=== PATIENT | female | born 1975 | race Caucasian/White ===

== ENCOUNTER → 2019-05-07 11:47 | Outpatient (CLI) | payer OTHER, SELFPAY ==
--- NOTE | ~2019-05-07 | US_ITS ---
EXAMINATION: US transvaginal EXAM DATE: 05/07/2019 12:10 INDICATION: Menorrhagia. TECHNIQUE: Pelvic transvaginal sonogram was performed. There are multiple grayscale and Doppler imag es available for interpretation. There is no prior study for comparison. FINDINGS: Uterus measures 6.8 x 5.2 x 4.7 cm, is retroverted and morphologically normal. Endometria l stripe measures 11 mm, within normal limits. There is no free pelvic fluid. Right adnexa: The right ovary is normal in size and morphology. Left adnexa: The left ovary is normal in size and morphology. IMPRESSION: 1. Unremarkable pelvic ultrasound exam. Reviewed, dictated and finalized at location A. STACKER
== END ==
PROVIDERS: PCP Family Medicine; Visit Provider Obstetrics & Gynecology
DX: N92.0 Excessive and frequent menstruation with regular cycle (principal)
CPT/HCPCS: 76830

== ENCOUNTER → 2019-06-27 15:15 | Outpatient (CLI) | payer OTHER, SELFPAY ==
--- NOTE | ~2019-06-27 | MM_ITS ---
EXAMINATION: MM scrn rocky implant BI w magda HISTORY: Screening mammogram TECHNIQUE: Craniocaudal and mediolateral oblique 3-D tomosynthesis images with implant displacement a nd synthetic 2-D images were generated. Craniocaudal and mediolateral oblique views of the breasts wi thout implant displacement were obtained using full field digital mammography. CAD analysis was submi tted and interpreted. COMPARISON: 05/18/2018 bilateral implant digital screening mammogram BREAST PARENCHYMAL COMPOSITION: The breasts are heterogeneously dense, which may obscure small masses . FINDINGS: Status post bilateral augmentation mammoplasty. There is no evidence of suspicious mass, ca lcification, or architectural distortion to suggest malignancy in either breast. There has been no nava spicious interval change. IMPRESSION: 1. No mammographic evidence of malignancy. 2. Recommend routine screening mammography in one year. BI-RADS Category 1: Negative Reviewed, dictated and finalized at location A.
== END ==
PROVIDERS: Visit Provider Obstetrics & Gynecology
DX: Z12.31 Encounter for screening mammogram for malignant neoplasm of breast (principal)
CPT/HCPCS: 77063; 77067

== ENCOUNTER 2019-10-18 09:44 | Outpatient (CLI) | payer OTHER, SELFPAY ==
--- NOTE | ~2019-10-18 | DEXA_ITS ---
Bone Density Report Name: Marianne Alexis Age: 43 Sex: Female Ethnicity: White Date of : 1975 Indication: postmenopausal; Referring Provider: YUNG GUERRA Study: Bone densitometry was performed. Exam Date: October 18, 2019 Accession number: [id number] Bone Density: Region BMD T-score Z-score Classification AP Spine (L1-L4) 1.042 0.0 0.2 Normal Femoral Neck (Left) 0.745 -0.9 -0.6 Normal Total Hip (Left) 0.948 0.0 0.3 Normal Total Hip Bilateral Avg 0.945 0.0 0.3 Normal Femoral Neck (Right) 0.706 -1.3 -1.0 Osteopenia Total Hip (Right) 0.940 0.0 0.2 Normal World Health Organization criteria for BMD impression classify patients as: Normal (T-score at or above -1.0), Osteopenia (T-score between -1.0 and -2.5), or Osteoporosis (T-score at or below -2.5). 10-year Fracture Risk(1): Major Osteoporotic Fracture 2.5% Hip Fracture 0.3% Reported Risk Factors: [place] (), Neck BMD=0.706, BMI=24.9, smoking (1) FRAX(R) Version 3.08. Fracture probability calculated for an untreated patient. Fracture probability may be lower if the patient has received treatment. Clinical Information Provided by Patient: Smokes Has used the following medications: Calcium Patient maximum height was 64 No regular weight bearing exercise Drinks caffeinated beverages Onset of menses at age 14 Number of children 2 Impression: The patient has low bone mass, based on the Right Femoral Neck T-score. The patient has an estimated ten-year risk of hip fracture of 0.3% and an estimated ten-year risk of major fracture of 2.5%, based on the WHO FRAX algorithm. The patient has risk factors, including: smoking. Discussion: BONE DENSITY IS LOW AT ONE OR MORE SKELETAL SITES. This patient's lowest T-score is low at one or more skeletal sites. It meets the World Health Organization's (WHO) criteria for ?low bone mass? (T-score between -1.0 and -2.5). The patient's 10-year risk of fracture as calculated by FRAX is less than the threshold where pharmacological therapy is recommended by the National Osteoporosis Foundation (NOF). However, all treatment decisions require clinical judgment and consideration of individual patient factors, including patient preferences, comorbidities, previous drug use, risk factors not captured in the FRAX model (e.g., frailty, falls, vitamin D deficiency, increased bone turnover, interval significant decline in bone density) and possible under or overestimation of fracture risk by FRAX. The patient should follow a healthful lifestyle (good nutrition with adequate calcium and vitamin D, and appropriate weight-bearing exercise). Follow-Up: Consider repeating this study in 2 to 3 years to reassess this patient's status, or sooner if there is some new clinical indication. Reported by: GOPI on
== END 2019-10-18 09:45 | disposition home or self-care (01) ==
PROVIDERS: PCP Family Medicine; Visit Provider Physician Assistant
DX: Z82.62 Family history of osteoporosis (principal); M85.851 Other specified disorders of bone density and structure, right thigh
CPT/HCPCS: 77080

== ENCOUNTER 2020-03-06 13:51 | Emergency (ER) | payer OTHER, SELFPAY ==
[2020-03-06 14:02] VITALS: BP 120/96; PULSE 107; RESP 16; TEMP 36.7; O2SAT 100
--- NOTE | 2020-03-06 14:07 | ED.SKABFB ---
HPI - Skin/Abscess/Foreign Bdy General Chief complaint: Skin/Abscess/Foreign Body Stated complaint: insect bite Time Seen by Provider: 03/06/20 14:00 Source: patient and RN notes reviewed Mode of arrival: ambulatory Limitations: no limitations History of Present Illness HPI narrative: Patient presents today complaining of a possible spider bite to the right lower leg x4 days. States she has been using peroxide and neosporin without relief. She has also attempted to pop the area and expressed a small amount of purulent material. Denies history of staph infections, abscesses, boils. Denies history of similar lesions. MD complaint: insect bite/sting Related Data Allergies Allergy/AdvReac Type Severity Reaction Status Date / Time No Known Allergies Allergy Unknown Verified 10/01/19 15:53 Review of Systems Review of Systems: Narrative: CONSTITUTIONAL: Denies body aches, fever, chills, or sweats. EYES: Denies visual changes, redness, or discharge. ENT: Denies rhinorrhea, congestion, sore throat, or otalgia. CARDIOVASCULAR: Denies chest pain, palpitations, or edema. RESPIRATORY: Denies cough or dyspnea. GASTROINTESTINAL: Denies abdominal pain, nausea, vomiting, or diarrhea. GENITOURINARY: Denies dysuria or hematuria. SKIN: Denies rash, itching. +possible spider bite to right lower leg MUSCULOSKELETAL: Denies back pain, joint pain, or myalgia. NEUROLOGIC: Denies headache, numbness, tingling, or weakness. PSYCH: Denies depression or anxiety. PMFSH Social History Social History Smoking packs per day: 0.75 Smoking cigarettes per day: 15.0 Years smoked: 20 Smoking pack-years: 15.00 Smoking status: Current every day smoker Tobacco type: cigarettes Alcohol intake: current Substance use: never Substance use type: does not use Gender identity (if verbalized by the patient): Female Comments At time of signature, I have reviewed and agree with nursing past medical, surgical, social and family history unless otherwise noted. Please see nursing chart for further information. There is no relevant family history pertinent to the presenting complaint Exam Narrative: Exam Narrative: GENERAL: Well-appearing, well-nourished, and in no acute distress. HEAD: Normocephalic, atraumatic. EYES: EOMI. No redness or drainage. Conjunctivae normal. ENT: Mucous membranes pink and moist. NECK: Normal AROM. CHEST: No respiratory distress. EXTREMITIES: Normal range of motion. No edema. SKIN: Warm, dry, no rash. Capillary refill normal. Normal skin turgor. 3.5x4cm area of erythema and mild induration to the medial right lower leg with pinpoint scab in the center. No fluctuance noted. Tender to palpation. No red streaking. No active drainage. No edema. Distal sensation intact. Capillary refill normal. NEURO: No focal deficits. Alert and oriented x3. Gait steady. PSYCH: Normal affect. No signs of depression or anxiety. Course Vital Signs Vital signs: Vital Signs Temperature 98.1 F 03/06/20 14:02 Pulse Rate 107 H 03/06/20 14:02 Respiratory Rate 16 03/06/20 14:02 Blood Pressure 120/96 H 03/06/20 14:02 Pulse Oximetry 100 03/06/20 14:02 Temperature 98.1 F 03/06/20 14:09 Pulse Rate 107 H 03/06/20 14:09 Respiratory Rate 16 03/06/20 14:09 Blood Pressure 120/96 H 03/06/20 14:09 Pulse Oximetry 100 03/06/20 14:09 Reviewed. Pt has been instructed to follow up with her PCP regarding her elevated blood pressure today. MDM - Skin/Abscess/Foreign Bdy Differential Diagnosis Differential diagnosis: Likely abscess of skin or subcutaneous tissue, cellulitis, insect bites and impetigo Critical Care Time Critical Care Time Critical Care Time: No Discharge Plan Discharge Clinical Impression: Cellulitis of leg, right Patient Disposition: Home, Self-Care Condition: Stable Instructions: Antibiotic Form, Cellulitis (DC) Gabino
[2020-03-06 14:09] VITALS: BP 120/96; PULSE 107; RESP 16; TEMP 36.7; O2SAT 100
== END 2020-03-06 14:10 | disposition home or self-care (01) ==
PROVIDERS: Emergency Provider Nurse Practitioner; PCP Family Medicine
DX: L03.115 Cellulitis of right lower limb (principal); F17.210 Nicotine dependence, cigarettes, uncomplicated
CPT/HCPCS: 99213; G0463

== ENCOUNTER 2020-04-09 08:54 | Day surgery (SDC) | payer OTHER, SELFPAY ==
[2020-04-09] VITALS (11 sets, daily range): BP systolic 93–142; BP diastolic 47–83; PULSE 62–97; RESP 15–20; TEMP 36.1–36.6; O2SAT 98–100
--- NOTE | ~2020-04-09 | XR_ITS ---
EXAMINATION: XR retrograde pyelo w/stent LT INDICATION: Left flank pain TECHNIQUE: Seven intraoperative fluoroscopic images are submitted for review. Total fluoroscopic time is 67.1 seconds. COMPARISON: CT from today FINDINGS: Fluoroscopic images demonstrate mild left hydronephrosis. Final images demonstrate a left i nternal ureteral stent in expected position. Please refer to procedure note for full details. IMPRESSION: 1. Mild left hydronephrosis with left internal ureteral stent placed in expected position. Please ref er to procedure note for full details. Reviewed, dictated and finalized at location A. R RETORT IMPRESSION: 1. Mild left hydronephrosis with left internal ureteral stent placed in expecte d position. Please refer to procedure note for full details.
--- NOTE | ~2020-04-09 | CT_ITS ---
EXAMINATION: CT abdomen pelvis wo con DATE: 04/09/2020 10:49 INDICATION: Left flank pain. Hematuria. TECHNIQUE: Computed tomography (CT) of the abdomen and pelvis was performed without intravenous contr ast. Automated exposure control and iterative reconstruction technique were employed. The dose-length product was 211.24 mGy-cm. COMPARISON: 07/15/2017 FINDINGS: Mild right basilar atelectasis. Small fat-containing posterior diaphragmatic hernia. Heart size is no rmal. No pericardial or pleural effusion. Bilateral breast implants. Liver, gallbladder, spleen, panc reas and bilateral adrenal glands are normal. Right kidney and ureter are normal with no urolithiasis or hydronephrosis. 9 x 5 x 4 mm obstructing stone at the left ureteropelvic junction with mild left hydronephrosis. There are 4 additional 1-2 mm stones in the left kidney. No stones along the more dis rasheed left ureter. Mild left perinephric stranding. Bladder is normal. Uterus and bilateral adnexa are unremarkable. Bowels including the appendix are normal. Tiny amount of likely physiologic free fluid in the cul-de-sac. No pathologically enlarged dominant or pelvic lymphadenopathy. Lower lumbar and lo wer thoracic spondylosis. IMPRESSION: 1. Left nephrolithiasis with obstructing 9 x 5 x 4 mm stone at the left ureterovesicular junction wit h mild left hydronephrosis. Reviewed, dictated and finalized at location A. OLIDS MANAGEMENT TECHNICIAN IMPRESSION: 1. Left nephrolithiasis with obstructing 9 x 5 x 4 mm stone at the left uretero vesicular junction with mild left hydronephrosis.
[2020-04-09] MEDS: SODIUM CHLORIDE 0.9% IV 1,000 ML 999 ML IV CONT (09:41)
[2020-04-09 09:55] LABS: Basophils Absolute Auto 0.1 K/mm3 (0.0-0.1); Basophils Percent Auto 0.5 % (0.2-1.2); Eosinophils Absolute Auto 0.2 K/mm3 (0-0.3); Eosinophils Percent Auto 1.9 % (0-4.4); Hematocrit 40.1 % (37.0-47.0); Hemoglobin 13.4 g/dL (12.0-15.0); Immature Granulocyte Absolute 0.05 K/mm3 (0.00-0.031); Immature Granulocyte Percent A 0.4 % (0-0.5); Lymphocytes Absolute Auto 1.72 K/mm3 (0.9-3.2); Mean Corpuscular HGB Conc 33.4 g/dl (32-36); Mean Corpuscular Volume 95.7 fl (80-100); Mean Platelet Volume 9.8 fl (7.4-10.4); Monocytes Absolute Auto 0.9 K/mm3 (0.1-0.6); Monocytes Percent Auto 7.1 % (2.6-8.5); Neutrophils Absolute Auto 9.4 K/mm3 (1.3-6.7); Neutrophils Percent Auto 76.1 % (45.5-73.1); Platelet Count Result 323 k/mm3 (150-375); Red Blood Count 4.19 M/mm3 (4.2-5.4); Red Cell Distribution Width 13.2 % (11.5-14.5); White Blood Count 12.3 K/mm3 (4.5-10.0)
[2020-04-09] MEDS: FAMOTIDINE 20 MG/2 ML VIAL IV PUSH (10:04)
[2020-04-09] MEDS: ONDANSETRON INJ 4 MG/2 ML VIAL IV PUSH ×2 (10:04→16:04)
[2020-04-09 10:09] LABS: Alanine Aminotransferase 14 U/L (4-35); Albumin Level 3.7 g/dL (3.5-5.1); Alkaline Phosphatase 68 U/L (38-126); Anion Gap 2 mmol/L (8-16); Aspartate Amino Transferase 19 U/L (14-36); Bilirubin,Total 0.7 mg/dL (0.2-1.3); Blood Urea Nitrogen 14 mg/dL (7-17); Calcium 8.6 mg/dL (8.4-10.2); Carbon Dioxide 26 mmol/L (22-30); Chloride 108 mmol/L (98-107); Estimated CRCL calculation 58 ml/min; Estimated Glomerular Filt Rate 54; Glucose 99 mg/dL (65-105); Lipase 18 U/L (23-300); Sodium 136 mmol/L (137-145)
[2020-04-09 10:39] LABS: Add Urine Microscopic? YES; Appearance Urine Clear (Clear); Bacteria Urine Trace /hpf; Bilirubin Urine Negative (Negative); Blood Urine Negative (Negative); Color Urine Yellow (Yellow); Glucose Urine UA Negative (Negative); Ketones Urine Negative (Negative); Leukocyte Esterase Ur Negative LEU/UL (Negative); Mucus Urine Rare /lpf; Nitrate Urine Negative (Negative); Protein Urine 1+ mg/dL (Negative); Squamous Epithelial Cell Urine Many /hpf (Few); Urobilinogen Urine Negative mg/dL (<2.0); WBC Urine 0-3 /hpf
--- NOTE | 2020-04-09 11:17 | ED.ABDPAIN ---
HPI - Abdominal Pain General Chief Complaint: Urogenital-Female Stated Complaint: Kidney Stones Time Seen by Provider: 04/09/20 09:07 Source: patient Mode of arrival: ambulatory Limitations: no limitations History of Present Illness HPI narrative: Patient is a 44-year-old female who presents with left flank pain patient notes over the last 2 days the pain has intensified with nausea decreased appetite patient notes history of urolithiasis was seen by primary care and has been taking Flomax and hydrocodone with minimal to no improvement presents today noting increasing pain. Related Data Allergies Allergy/AdvReac Type Severity Reaction Status Date / Time No Known Allergies Allergy Unknown Verified 04/09/20 09:45 Review of Systems Review of Systems: All systems reviewed & are unremarkable except as noted in HPI and below PMFSH Past Medical History Medical History (Updated 04/09/20 @ 11:20 by Yuri Jones PA-C) Nephrolithiasis Urolithiasis Social History Social History Social History: Smoking packs per day: 0.75 Smoking cigarettes per day: 15.0 Years smoked: 20 Smoking pack-years: 15.00 Smoking status: Current every day smoker Tobacco type: cigarettes Second hand tobacco smoke exposure: Yes Alcohol intake: current Drinks per week: 2 Substance use: never Substance use type: does not use Gender identity (if verbalized by the patient): Female Exam Narrative: Exam Narrative: GENERAL: Well-appearing, well-nourished, and in no acute distress. HEAD: Normocephalic, atraumatic. EYES: PERRLA and EOMI. ENT: Nares clear, no rhinorrhea or epistaxis. Mucous membranes moist. CHEST: Clear to auscultation. No respiratory distress. No wheezes rales or rhonchi HEART: Regular rate and rhythm. No murmur heard. Normal peripheral pulses. ABDOMEN: Soft, nontender, nondistended EXTREMITIES: Normal range of motion. No edema. SKIN: Warm, dry, no rash. NEURO: No focal deficits. Alert and oriented x3. Cranial nerves II through XII grossly intact PSYCH: Normal mood and affect. Course Course Emergency Course: Patient with urolithiasis in the room has been hydrated given pain medication afebrile nontoxic-appearing without emesis Consultations Consultation #1: Case discussed with urology Dr. Pratt's who will take the patient to the operating room for stone extraction Date: 04/09/20 Time: 11:42 Vital Signs Vital signs: Vital Signs Temperature 97.0 F L 04/09/20 09:16 Pulse Rate 92 04/09/20 09:16 Respiratory Rate 18 04/09/20 09:16 Blood Pressure 142/83 H 04/09/20 09:16 Pulse Oximetry 98 04/09/20 09:16 Temperature 97.0 F L 04/09/20 09:16 Pulse Rate 73 04/09/20 11:15 Respiratory Rate 18 04/09/20 11:15 Blood Pressure 108/72 04/09/20 11:15 Pulse Oximetry 98 04/09/20 11:15 MDM - Abdominal Pain MDM Narrative Medical decision making narrative: Patient was found to have urolithiasis will go to the operating room for stone extraction by urology patient aware of recommendations and discussion with urology has been hydrated and given pain medications in the emergency department hemodynamically stable resting comfortably in the room Lab Data Result diagrams: 04/09/20 09:40 04/09/20 09:40 Labs: Lab Results 04/09/20 04/09/20 04/09/20 Range/Units 09:40 09:40 10:24 WBC 12.3 H (4.5-10.0) K/mm3 RBC 4.19 L (4.2-5.4) M/mm3 Hgb 13.4 (12.0-15.0) g/dL Hct 40.1 (37.0-47.0) % MCV 95.7 (80-100) fl MCH 32.0 (26-34) pg MCHC 33.4 (32-36) g/dl RDW 13.2 (11.5-14.5) % Plt Count 323 (150-375) k/mm3 MPV 9.8 (7.4-10.4) fl Immature Gran % (Auto) 0.4 (0-0.5) % Neut % (Auto) 76.1 H (45.5-73.1) % Lymph % (Auto) 14.0 L (18.3-44.2) % [place] % (Auto) 7.1 (2.6-8.5) % Eos % (Auto) 1.9 (0-4.4) % Baso % (Auto) 0.5 (0.2-1.2) % Lymp
[2020-04-09] MEDS: MORPHINE SULFATE (*CRX) 4 MG/ML INJ IV PUSH (12:01)
--- NOTE | 2020-04-09 12:45 | P.HP_ITS ---
History of Present Illness History of Present Illness Consent: Risks, benefits, and alternatives have been discussed and questions answered. Patient agrees to proceed with procedure. Chief complaint: Kidney Stones Narrative: Marianne Alexis is a 44 year old female who spontaneously passed 2 or 3 small stones in the past. She now presents to the ER with a 3-4 day history of intermittent left flank pain associated with nausea vomiting. She denies fevers chills or gross hematuria. Imaging in the ER reveals a 9 mm obstructing left proximal ureteral calculus. Additionally she has some tiny left renal calculi that, the current size, not clinically significant. Review of Systems Cardiovascular: Cardiovascular: Denies chest pain, Denies lightheadedness, Denies palpitations and Denies dyspnea Respiratory: Respiratory: Denies dyspnea Gastrointestinal: Gastrointestinal: Denies diarrhea, Denies nausea and Denies vomiting Genitourinary: Genitourinary: Denies hematuria and Denies dysuria Endocrine: Endocrine: Denies palpitations PMFSH Past Medical History Medical History Nephrolithiasis Urolithiasis Social History Social History Social History: Smoking packs per day: 0.75 Smoking cigarettes per day: 15.0 Years smoked: 20 Smoking pack-years: 15.00 Smoking status: Current every day smoker Tobacco type: cigarettes Second hand tobacco smoke exposure: Yes Alcohol intake: current Drinks per week: 2 Substance use: never Substance use type: does not use Gender identity (if verbalized by the patient): Female Meds Home Medications and Allergies Home Medications Medication Instructions Recorded Confirmed Type hydrocodone 5 mg-acetaminophen 325 1 tablet PO Q4H PRN #20 tablet 04/08/20 04/08/20 Rx mg tablet tamsulosin 0.4 mg capsule 0.4 mg PO DAILY #30 cap 04/08/20 04/08/20 Rx Allergies Allergy/AdvReac Type Severity Reaction Status Date / Time No Known Allergies Allergy Unknown Verified 04/09/20 09:45 Vital Signs Vital Signs - 24 hr 04/09/20 09:16 04/09/20 11:15 04/09/20 11:55 Temperature 97.0 F L Pulse Rate 92 73 62 Respiratory Rate 18 18 18 Blood Pressure 142/83 H 108/72 103/71 Pulse Oximetry 98 98 98 Exam Const: General: no acute distress Resp: Effort & Inspection: normal respiratory effort GI: Inspection: non-distended GI Palp: No abdominal tenderness and No Guarding due to palpation present (GI) Auscultation: normal bowel sounds Assessment and Plan Assessment and plan (1) Urolithiasis: Code(s): N20.9 - Urinary calculus, unspecified Status: Acute Assessment and Plan: * Cystoscopy left ureteroscopy with laser lithotripsy, stone extraction and possible stent placement. Patient is aware of the potential risk including, failure to completely extract stone, ureteral injury, ureteral edema, possible stent placement. She is aware of alternative treatment options including ESWL.
--- NOTE | 2020-04-09 12:49 | WPDHPUPDATE1 ---
History and Physical Update Update Date/Time: 04/09/20 12:49 History and Physical has been reviewed, including an updated exam of the patient. There are NO changes in the patient's condition. Risks, benefits, and alternatives have been discussed and questions answered. Patient agrees to proceed with procedure.
--- NOTE | 2020-04-09 13:51 | WPDANESEPPF ---
Anes - Initial Pre Proc Eval Procedure: Operation Date: 04/09/20 14:15 Proposed Procedures p CYSTOSCOPY,LEFT URETEROCOPY,LEFT RETROGRADE PYELOGRAM,LEFT STONE EXTRACTION,POSSIBLE HOLMIUM LASER,POSSIBLE STENT PLCEMENT - Med Amos MD Date/Time: 04/09/20 13:51 Surgeon: Med Amos MD Pre Op Diagnosis: Kidney Stones Patient Data Age: 44 Gender: F Height: 1.63 m Weight: 72.5 kg Last Vital Signs Temp 36.6 C 04/09/20 13:32 Pulse 74 04/09/20 13:32 Resp 18 04/09/20 13:32 BP 113/55 L 04/09/20 13:32 Pulse Ox 99 04/09/20 13:32 Allergies Allergy/AdvReac Type Severity Reaction Status Date / Time No Known Allergies Allergy Unknown Verified 04/09/20 13:21 Home Medications Medication Instructions Recorded Confirmed Type hydrocodone 5 mg-acetaminophen 325 1 tablet PO Q4H PRN #20 tablet 04/08/20 04/09/20 Rx mg tablet tamsulosin 0.4 mg capsule 0.4 mg PO DAILY #30 cap 04/08/20 04/09/20 Rx Laboratory Tests 04/09/20 04/09/20 04/09/20 09:40 09:40 10:24 WBC 12.3 K/mm3 H K/mm3 (4.5-10.0) RBC 4.19 M/mm3 L M/mm3 (4.2-5.4) Hgb 13.4 g/dL g/dL (12.0-15.0) Hct 40.1 % % (37.0-47.0) MCV 95.7 fl fl (80-100) MCH 32.0 pg pg (26-34) MCHC 33.4 g/dl g/dl (32-36) RDW 13.2 % % (11.5-14.5) Plt Count 323 k/mm3 k/mm3 (150-375) MPV 9.8 fl fl (7.4-10.4) Immature Gran % (Auto) 0.4 % % (0-0.5) Neut % (Auto) 76.1 % H % (45.5-73.1) Lymph % (Auto) 14.0 % L % (18.3-44.2) [place] % (Auto) 7.1 % % (2.6-8.5) Eos % (Auto) 1.9 % % (0-4.4) Baso % (Auto) 0.5 % % (0.2-1.2) Lymph # (Auto) 1.72 K/mm3 K/mm3 (0.9-3.2) [place] # (Auto) 0.9 K/mm3 H K/mm3 (0.1-0.6) Eos # (Auto) 0.2 K/mm3 K/mm3 (0-0.3) Baso # (Auto) 0.1 K/mm3 K/mm3 (0.0-0.1) Abs Immat Gran (auto) 0.05 K/mm3 H K/mm3 (0.00-0.031) Absolute Neuts (auto) 9.4 K/mm3 H K/mm3 (1.3-6.7) Absolute Nucleated RBC 0.0 K/mm3 K/mm3 (0.0-0.012) Nucleated RBC % 0.0 % % (0.0-0.2) Sodium 136 mmol/L L mmol/L (137-145) Potassium 4.0 mmol/L mmol/L (3.4-5.0) Chloride 108 mmol/L H mmol/L (98-107) Carbon Dioxide 26 mmol/L mmol/L (22-30) Anion Gap 2 mmol/L L mmol/L (8-16) BUN 14 mg/dL mg/dL (7-17) Creatinine 1.10 mg/dL H mg/dL (0.7-1.0) Estim Creat Clear Calc 58 ml/min ml/min Estimated GFR 54 L (59 - ) Glucose 99 mg/dL mg/dL (65-105) Calcium 8.6 mg/dL mg/dL (8.4-10.2) Total Bilirubin 0.7 mg/dL mg/dL (0.2-1.3) AST 19 U/L U/L (14-36) ALT 14 U/L U/L (4-35) Alkaline Phosphatase 68 U/L U/L (38-126) Total Protein 7.0 g/dL g/dL (6.3-8.2) Albumin 3.7 g/dL g/dL (3.5-5.1) Lipase 18 U/L L U/L (23-300) Urine Color Yellow (Yellow) Urine Appearance Clear (Clear) Urine pH 6.0 (5.0-9.0) Ur Specific [place] 1.030 (1.001-1.035) Urine Protein 1+ mg/dL H mg/dL (Negative) Urine Glucose (UA) Negative mg/dL mg/dL (Negative) Urine Ketones Negative mg/dL mg/dL (Negative) Ur Blood (Man) Negative (Negative) Urine Nitrate Negative (Negative) Urine Bilirubin Negative (Negative) Urine Urobilinogen Negative mg/dL mg/dL (<2.0) Leukocyte Esterase Rfl Negative LEON/UL LEON/UL (Negative) Urine RBC 3-5 /hpf H /hpf (0-2) Urine WBC 0-3 /hpf /hpf Ur Squamous Epith Cells Many /hpf H /hpf (Few) Urine Bacteria Trace /hpf /hpf Urine Mucus Rare /lpf /lpf Patient hx anesthesia problems: none Family hx anesthesia problems: none PMFSH Past
[2020-04-09] MEDS: LACTATED RINGERS 1,000 ML 30 ML IV CONT ×2 (14:08→15:33)
[2020-04-09] MEDS: fentaNYL CITRATE INJ (*CRX) 100 MCG/2 ML VIAL 50 MCG IV PUSH (14:08)
[2020-04-09] MEDS: ceFAZolin SODIUM 1 GM VIAL 2 GM IV PUSH (14:54)
[2020-04-09] MEDS: KETOROLAC 30 MG/ML VIAL (*BKC) IV PUSH (15:26)
--- NOTE | 2020-04-09 15:35 | PM.PROC ---
Procedure Note - Detailed Date of procedure: 04/09/20 Pre-op diagnosis: Kidney Stones Post-op diagnosis: same Procedure performed: 1. Cystoscopy, left retrograde pyelogram 2. Left ureteroscopy with laser lithotripsy, stone extraction. 3. Left ureteral stent placement Description of procedure: Patient is brought to the operative suite where she was prepped and draped in routine sterile fashion while in dorsal lithotomy position after the uneventful induction of a general anesthetic. Cystoscopy is undertaken with a 19 F rigid cystoscope. Her bladder is normal, without mucosal hyperemia harm intravesical foreign body/ neoplasm. She has a single orthotopic ureteral orifice bilaterally. A 0.035 in glidewire was advanced in the left renal pelvis. Distal ureter was dilated with an 8 F 10 F dilator and a 12/14 F ureteral access sheath was placed. Ureteroscopy was undertaken with a 7.5 F flexible ureteral scope. Using a 273 micron holmium laser fiber her 9 mm proximal ureteral stone is fractured into multiple tiny pieces. All the sizable fragments were extracted with a 1.9 F and 0 tip disposable stone basket. Retrograde pyelogram is used to ensure appropriate positioning of a 4.8 F variable length ureteral stent. Scopes wires removed she was taken recovery room good condition Anesthesia: GLMA Surgeon: Med Amos MD Case Manager: None Drains: Yes (4.8F left ureteral stent) Packing: No Pathology: yes (Left ureteral stone) Complications: No immediate complications Condition: stable Disposition: PACU
== END 2020-04-09 16:45 | disposition home or self-care (01) ==
LOC: ANHED 11:43 → ANHSURGERY 11:47
PROVIDERS: Emergency Medicine Emergency Medical Services; Emergency Provider Emergency Medicine; PCP Family Medicine; Visit Provider Urology
PROC: (CPT 52352; principal; 2020-04-09 14:15)
DX: N13.2 Hydronephrosis with renal and ureteral calculous obstruction (principal); F17.210 Nicotine dependence, cigarettes, uncomplicated
CPT/HCPCS: 52356; 36415; 74176; 74420; 80053; 81001; 81025; 82365; 83690; 85025; 88300; 96361; 96365; 96375; 99285; C1769; C1894; C2617; J0131; J0690; J1100; J1885; J2250; J2270; J2405; J2704; J3010; J7030; J7120; Q9966

== ENCOUNTER 2021-01-28 11:04 | Emergency (ER) | payer OTHER, SELFPAY ==
--- NOTE | ~2021-01-28 | CT_ITS ---
EXAMINATION: CT BRAIN W/O DATE: 01/28/2021 13:46 INDICATION: Migraine headache TECHNIQUE: Computed tomography (CT) of the head was performed without intravenous contrast. The dose- length product was 605.33 mGy-cm. Automated exposure control and iterative reconstruction technique w ere employed. COMPARISON: No prior studies for comparison. FINDINGS: Normal brain parenchymal volume for age. Normal lópez-white differentiation. No acute intrac ranial hemorrhage, infarction, mass or mass effect. No ventriculomegaly or midline shift. Midline sagittal images demonstrate a normal corpus callosum, c raniovertebral junction and sella turcica. Basilar cisterns are patent. There is mild mucosal thickening of the ethmoid and frontal sinuses. IMPRESSION: 1. No acute intracranial abnormality. 2: Mild sinusitis. Reviewed, dictated and finalized at location A. RATUS OPERATOR
[2021-01-28 11:22] VITALS: BP 113/67; PULSE 83; RESP 18; TEMP 36.2; O2SAT 98
[2021-01-28 12:39] LABS: Basophils Absolute Auto 0.1 K/mm3 (0.0-0.1); Basophils Percent Auto 0.6 % (0.2-1.2); Eosinophils Absolute Auto 0.3 K/mm3 (0-0.3); Eosinophils Percent Auto 2.8 % (0-4.4); Hematocrit 47.9 % (37.0-47.0); Immature Granulocyte Absolute 0.05 K/mm3 (0.00-0.031); Immature Granulocyte Percent A 0.5 % (0-0.5); Lymphocytes Absolute Auto 3.49 K/mm3 (0.9-3.2); Lymphocytes Percent Auto 32.7 % (18.3-44.2); Mean Corpuscular HGB Conc 33.4 g/dl (32-36); Mean Corpuscular Hemoglobin 31.9 pg (26-34); Mean Corpuscular Volume 95.4 fl (80-100); Mean Platelet Volume 9.6 fl (7.4-10.4); Monocytes Absolute Auto 0.9 K/mm3 (0.1-0.6); Monocytes Percent Auto 8.2 % (2.6-8.5); Neutrophils Absolute Auto 5.9 K/mm3 (1.3-6.7); Neutrophils Percent Auto 55.2 % (45.5-73.1); Platelet Count Result 423 k/mm3 (150-375); Red Blood Count 5.02 M/mm3 (4.2-5.4); Red Cell Distribution Width 13.2 % (11.5-14.5); White Blood Count 10.7 K/mm3 (4.5-10.0)
[2021-01-28 12:53] LABS: Alanine Aminotransferase 19 U/L (4-35); Albumin Level 4.5 g/dL (3.5-5.1); Alkaline Phosphatase 72 U/L (38-126); Anion Gap 7 mmol/L (8-16); Aspartate Amino Transferase 18 U/L (14-36); Bilirubin,Total 0.5 mg/dL (0.2-1.3); Blood Urea Nitrogen 13 mg/dL (7-17); Calcium 9.5 mg/dL (8.4-10.2); Carbon Dioxide 26 mmol/L (22-30); Chloride 106 mmol/L (98-107); Estimated CRCL calculation 77 ml/min; Estimated Glomerular Filt Rate > 60; Glucose 94 mg/dL (65-110); Potassium 4.2 mmol/L (3.4-5.0); Sodium 139 mmol/L (137-145)
[2021-01-28 12:59] LABS: Add Urine Microscopic? YES; Appearance Urine Clear (Clear); Bacteria Urine Trace /hpf; Bilirubin Urine Negative (Negative); Blood Urine 2+ (Negative); Color Urine Yellow (Yellow); Glucose Urine UA Negative (Negative); Ketones Urine Negative (Negative); Leukocyte Esterase Ur Negative LEU/UL (Negative); Mucus Urine Rare /lpf; Nitrate Urine Negative (Negative); Protein Urine Negative (Negative); RBC Urine 0-2 /hpf (0-2); Specific Grav Ur 1.012 (1.001-1.035); Squamous Epithelial Cell Urine Rare /hpf (Few); Urobilinogen Urine Negative mg/dL (<2.0); WBC Urine 0-3 /hpf
[2021-01-28] MEDS: DEXAMETHASONE SOD PHOS INJ 4 MG/ML VIAL 10 MG IV PUSH (13:54)
[2021-01-28] MEDS: diphenhydrAMINE HCl INJ 50 MG/ML VIAL IV PUSH (13:56)
[2021-01-28] MEDS: KETOROLAC 15 MG/ML VIAL (*BKC) 30 MG IV PUSH (13:58)
[2021-01-28] MEDS: METOCLOPRAMIDE HCL INJ 10 MG/2 ML VIAL IV PUSH (14:00)
--- NOTE | 2021-01-28 16:30 | ED.GENADULT ---
HPI - General Adult General Chief complaint: Headache Stated complaint: migraine Time Seen by Provider: 01/28/21 11:48 Source: patient Mode of arrival: ambulatory Limitations: no limitations History of Present Illness HPI narrative: Patient is a 45-year-old female presenting with chief complaint of frontal left-sided headache over the past 4 days. Patient reports that she contacted her primary care and was prescribed Imitrex but her symptoms did not remit after taking the 2 doses so she presented to the emergency department. Patient reports some nausea and photophobia. She denies any vomiting. Patient reports that she has a history of migraines however they do not generally last for 4 days and are not usually as intense. She reports that she can usually get them to stop with rest and [id number] medication. She denies any fever, chills, head trauma, neurologic deficits, speech difficulties. Patient denies chance of . Related Data Allergies Allergy/AdvReac Type Severity Reaction Status Date / Time No Known Allergies Allergy Unknown Verified 01/22/21 08:50 Review of Systems Review of Systems: CONSTITUTIONAL: Denies fever, chills, or sweats. EYES: Reports photophobia denies visual changes, redness, or discharge. ENT: Denies rhinorrhea, congestion, sore throat, or otalgia. CARDIOVASCULAR: Denies chest pain, palpitations, or edema. RESPIRATORY: Denies cough or dyspnea. GASTROINTESTINAL: Reports nausea denies abdominal pain,vomiting, or diarrhea. GENITOURINARY: Denies dysuria or hematuria. SKIN: Denies rash or itching. MUSCULOSKELETAL: Denies back pain, joint pain, or myalgia. NEUROLOGIC: Reports headache, denies numbness, dizziness, or weakness. PSYCHIATRIC: Denies anxiety or depression. [facility] Past Medical History Medical History Nephrolithiasis Overweight (BMI 25.0-29.9) Urolithiasis Social History Social History Social History: Smoking packs per day: 0.75 Smoking cigarettes per day: 15.0 Years smoked: 20 Smoking pack-years: 15.00 Tobacco type: cigarettes Second hand tobacco smoke exposure: Yes Alcohol intake: current Drinks per week: 2 Alcohol use details: social drinker Substance use: never Substance use type: does not use Gender identity (if verbalized by the patient): Female Sexual Orientation (if Verbalized by the Patient): Straight or Heterosexual Exam Narrative: GENERAL: Well-appearing, well-nourished, and in no acute distress. HEAD: Normocephalic, atraumatic. EYES: PERRLA and EOMI. ENT: Nares clear, no rhinorrhea or epistaxis. Mucous membranes moist. Oropharynx without tonsillar hypertrophy exudate or other lesions. Bilateral TMs pearly lópez nonbulging. Sinus tenderness maxillary. No purulent drainage. NECK: Supple. No adenopathy or masses. No rigidity. CHEST: Clear to auscultation. No respiratory distress. No wheezes rales or rhonchi HEART: Regular rate and rhythm. No murmur heard. Normal peripheral pulses. EXTREMITIES: Normal range of motion. No edema. SKIN: Warm, dry, no rash. NEURO: No focal deficits. Alert and oriented x3. PSYCH: Normal mood and affect. Course Vital Signs Vital signs: Vital Signs Temperature 97.1 F L 01/28/21 11:22 Pulse Rate 83 01/28/21 11:22 Respiratory Rate 18 01/28/21 11:22 Blood Pressure 113/67 01/28/21 11:22 Pulse Oximetry 98 01/28/21 11:22 Temperature 97.1 F L 01/28/21 11:22 Pulse Rate 83 01/28/21 11:22 Respiratory Rate 18 01/28/21 11:22 Blood Pressure 113/67 01/28/21 11:22 Pulse Oximetry 98 01/28/21 11:22 Medical Decision Making [facility] Narrative Medical decision making narrative: Patient reports remittance of symptoms with migraine cocktail. Patient does report getting over her virus a couple weeks ago still having some sinus tenderness. Patient will be placed on Augmenti
[2021-01-28 16:57] VITALS: BP 114/82; PULSE 86; RESP 17; O2SAT 99
== END 2021-01-28 16:58 | disposition home or self-care (01) ==
PROVIDERS: Physician Assistant; Emergency Provider Emergency Medicine; PCP Family Medicine
DX: R51.9 Headache, unspecified (principal); J01.90 Acute sinusitis, unspecified; F17.210 Nicotine dependence, cigarettes, uncomplicated
CPT/HCPCS: 36415; 70450; 80053; 81001; 81025; 85025; 96374; 96375; 99284; J1100; J1200; J1885; J2765

== ENCOUNTER → 2021-04-13 14:37 | Outpatient (CLI) | payer OTHER, SELFPAY ==
--- NOTE | ~2021-04-13 | XR_ITS ---
EXAMINATION: XR hand RT min 3V EXAM DATE: 04/13/2021 15:11 INDICATION: M79.641 - Pain in right hand. Swelling/bruising at head of 3rd metacarpal; occasional nu mbness, tingling and throbbing when using hand. TECHNIQUE: Right hand frontal, lateral and oblique projections obtained and reviewed. There is no pr ior study for comparison. FINDINGS: Right metacarpal bones are unremarkable. There are no bony erosions identified. There are no acute fractures or dislocations identified. There is no subcutaneous gas. The soft tissue is un remarkable. There are no radiopaque foreign bodies. IMPRESSION: 1. Unremarkable XR hand RT min 3V exam. Reviewed, dictated and finalized at location A. T PICKER
== END ==
PROVIDERS: PCP Family Medicine; Visit Provider Physician Assistant
DX: M79.641 Pain in right hand (principal)
CPT/HCPCS: 73130

== ENCOUNTER 2021-06-18 13:27 | Emergency (ER) | payer OTHER, SELFPAY ==
--- NOTE | ~2021-06-18 | CT_ITS ---
EXAMINATION: CT abdomen pelvis wo con DATE: 06/18/2021 17:14 INDICATION: Left flank pain. TECHNIQUE: Computed tomography (CT) of the abdomen and pelvis was performed without intravenous contr ast. Automated exposure control and iterative reconstruction technique were employed. The dose-length product was 202.32 mGy-cm. COMPARISON: CT abdomen and pelvis 04/09/2020 FINDINGS: The visualized portions of the lung bases demonstrate minimal atelectasis. No pleural effus ion. The heart size is normal. No pericardial effusion. Breast implants are noted. The liver, gallbla dder, spleen, pancreas, adrenal glands, and kidneys are normal. There is no urolithiasis. There are n o dilated loops of bowel. The appendix is normal. There are no pathologically enlarged lymph nodes. T here is no free intraperitoneal fluid. There is mild thoracolumbar spondylosis. IMPRESSION: 1. No urolithiasis. Reviewed, dictated and finalized at location A. IMPRESSION: 1. No urolithiasis.
[2021-06-18 13:28] VITALS: BP 121/102; PULSE 118; RESP 18; TEMP 36.4; O2SAT 98
[2021-06-18 13:48] LABS: Basophils Absolute Auto 0.1 K/mm3 (0.0-0.1); Basophils Percent Auto 0.6 % (0.2-1.2); Eosinophils Absolute Auto 0.4 K/mm3 (0-0.3); Eosinophils Percent Auto 3.3 % (0-4.4); Hematocrit 44.6 % (37.0-47.0); Hemoglobin 14.5 g/dL (12.0-15.0); Immature Granulocyte Absolute 0.03 K/mm3 (0.00-0.031); Immature Granulocyte Percent A 0.3 % (0-0.5); Lymphocytes Absolute Auto 2.77 K/mm3 (0.9-3.2); Lymphocytes Percent Auto 25.1 % (18.3-44.2); Mean Corpuscular HGB Conc 32.5 g/dl (32-36); Mean Corpuscular Hemoglobin 31.8 pg (26-34); Mean Corpuscular Volume 97.8 fl (80-100); Mean Platelet Volume 9.7 fl (7.4-10.4); Monocytes Percent Auto 8.7 % (2.6-8.5); Neutrophils Absolute Auto 6.9 K/mm3 (1.3-6.7); Platelet Count Result 415 k/mm3 (150-375); Red Blood Count 4.56 M/mm3 (4.2-5.4); Red Cell Distribution Width 13.4 % (11.5-14.5); White Blood Count 11.1 K/mm3 (4.5-10.0)
[2021-06-18 14:01] LABS: Alanine Aminotransferase 15 U/L (4-35); Albumin Level 4.4 g/dL (3.5-5.1); Alkaline Phosphatase 69 U/L (38-126); Anion Gap 7 mmol/L (8-16); Aspartate Amino Transferase 23 U/L (14-36); Bilirubin,Total 0.4 mg/dL (0.2-1.3); Blood Urea Nitrogen 13 mg/dL (7-17); Calcium 9.1 mg/dL (8.4-10.2); Carbon Dioxide 23 mmol/L (22-30); Chloride 109 mmol/L (98-107); Estimated CRCL calculation 74 ml/min; Estimated Glomerular Filt Rate > 60; Glucose 105 mg/dL (65-110); Sodium 139 mmol/L (137-145)
[2021-06-18 14:01] LABS: Add Urine Microscopic? YES; Appearance Urine Clear (Clear); Bilirubin Urine Negative (Negative); Blood Urine 1+ (Negative); Color Urine Yellow (Yellow); Glucose Urine UA Negative (Negative); Ketones Urine Negative (Negative); Leukocyte Esterase Ur Negative LEU/UL (Negative); Mucus Urine Rare /lpf; Nitrate Urine Negative (Negative); Protein Urine Negative (Negative); Squamous Epithelial Cell Urine Rare /hpf (Few); Urobilinogen Urine Negative mg/dL (<2.0); WBC Urine 0-3 /hpf
[2021-06-18 16:18] VITALS: BP 123/77; PULSE 78; RESP 19; O2SAT 97
--- NOTE | 2021-06-18 17:57 | ED.GENADULT ---
HPI - General Adult General Chief complaint: Back Pain/Injury Stated complaint: I've got kidney stones again Left flank pain Time Seen by Provider: 06/18/21 16:17 Source: RN notes reviewed History of Present Illness HPI narrative: Patient presents emergency room from home for left flank pain. Patient states has been ongoing for the past 6 days. The pain is located left back does not radiate described as aching in nature worse with rotation of the torso and bending over denies any fevers or chills, chest pain, shortness of breath nausea vomiting diarrhea or any other symptoms. Patient states he has a history of of kidney stones and was concerned she had another kidney stone states she is not taking medication at home for the pain and does not wish to have any pain medication at this time Related Data Allergies Allergy/AdvReac Type Severity Reaction Status Date / Time No Known Allergies Allergy Unknown Verified 06/04/21 13:52 Review of Systems Review of Systems: Gen.: Denies fevers or chills ENT: Denies congestion Respiratory: Denies shortness of breath or cough CV: Denies chest pain or palpitations GI: Denies abdominal pain nausea, emesis or diarrhea denies burning, urgency, frequency or hematuria Musculoskeletal: See HPI Neuro: Denies numbness, tingling, weakness or focal weakness Skin: Denies rash Except as documented, all other systems reviewed and negative [facility] Past Medical History Medical History Nephrolithiasis Overweight (BMI 25.0-29.9) Urolithiasis Social History Social History Social History: Smoking packs per day: 0.75 Smoking cigarettes per day: 15.0 Years smoked: 20 Smoking pack-years: 15.00 Smoking status: Current every day smoker Tobacco type: cigarettes Second hand tobacco smoke exposure: Yes Alcohol intake: current Drinks per week: 2 Alcohol use details: social drinker Substance use: never Substance use type: does not use Gender identity (if verbalized by the patient): Female Sexual Orientation (if Verbalized by the Patient): Straight or Heterosexual Exam Narrative: APPEARANCE: No acute distress, nontoxic, resting in bed EYES: EOMI HEENT: Normocephalic, atraumatic, OMM RESPIRATORY: No respiratory distress Clear to auscultation bilaterally with no rhonchi wheezing or rales. CARDIOVASCULAR: Regular rate and rhythm without murmurs rubs or gallops. ABDOMINAL: Soft, nontender, nondistended, no rebound or guarding MUSCULOSKELETAl: Moves all extremities. No clubbing, cyanosis or edema. Back: No midline thoracic lumbar tenderness palpation tender palpation over left paravertebral cells L1-3 and left flank pain increased with forward flexion rotation of the torso no overlying rash NEURO: Awake and alert. Following commands, speech normal, no focal deficits SKIN:: Warm, dry. No rashes lesions or abrasions PSYCHIATRIC: Normal affect/mood, Course Course Emergency Course: Discussed with patient results of workup and diagnosis. Discussed need for follow-up with primary care, proper use of medication, and reasons to return to the emergency department. Patient understands and agrees to current treatment plan Vital Signs Vital signs: Vital Signs Temperature 97.5 F L 06/18/21 13:28 Pulse Rate 118 H 06/18/21 13:28 Respiratory Rate 18 06/18/21 13:28 Blood Pressure 121/102 H 06/18/21 13:28 Pulse Oximetry 98 06/18/21 13:28 Temperature 97.5 F L 06/18/21 13:28 Pulse Rate 78 06/18/21 16:18 Respiratory Rate 19 06/18/21 16:18 Blood Pressure 123/77 06/18/21 16:18 Pulse Oximetry 97 06/18/21 16:18 Medical Decision Making [facility] Narrative Medical decision making narrative: Patient presents for left flank pain past 6 days history of kidney stones worse with movement. Lab results are within normal limits minimal blood in urine in the uri
[2021-06-18 18:06] VITALS: BP 122/80; PULSE 74; RESP 18; TEMP 36.7; O2SAT 95
== END 2021-06-18 18:17 | disposition home or self-care (01) ==
PROVIDERS: Emergency Provider Emergency Medicine; PCP Family Medicine
DX: R10.9 Unspecified abdominal pain (principal); Z87.442 Personal history of urinary calculi; E66.3 Overweight; Z68.27 Body mass index [BMI] 27.0-27.9, adult; F17.210 Nicotine dependence, cigarettes, uncomplicated
CPT/HCPCS: 36415; 74176; 80053; 81001; 81025; 85025; 99284

== ENCOUNTER → 2021-12-28 13:52 | Outpatient (CLI) | payer OTHER, SELFPAY ==
--- NOTE | ~2021-12-28 | XR_ITS ---
EXAMINATION: XR chest 2V DATE: 12/28/2021 14:28 INDICATION: Cough TECHNIQUE: PA and lateral views of the chest are obtained. COMPARISON: None available FINDINGS: The lungs are free of acute opacities. No pleural effusion or pneumothorax. The cardiomedia stinal silhouette is normal. The visualized bones and soft tissues are unremarkable. Bilateral breast implants are noted. IMPRESSION: 1. No acute cardiopulmonary abnormality. Reviewed, dictated and finalized at location A.
== END ==
PROVIDERS: PCP Physician Assistant; Visit Provider Physician Assistant
DX: R05.9 Cough, unspecified (principal)
CPT/HCPCS: 71046

== ENCOUNTER → 2022-05-13 10:11 | Outpatient (CLI) | payer OTHER, SELFPAY ==
--- NOTE | ~2022-05-13 | US_ITS ---
EXAMINATION: US pelvic complete DATE: 05/13/2022 10:29 INDICATION: Excessive and frequent menstruation Comparison:Ultrasound dated 05/07/2019 TECHNIQUE: Multiple transabdominal sonographic images of the pelvis performed. FINDINGS: The uterus measures 11.8 x 5.2 x 5.4 cm. There is a nabothian cyst measuring 2.2 cm. The en dometrial complex measures 8 mm. The right ovary measures 2 x 1.9 x 1.9 cm and the left ovary measures 2.3 x 2 x 1.9 cm. There are sm all follicles in each ovary. Normal doppler signal in both ovaries. There is no free fluid in the pelvis. There are no abnormal masses seen on either side. IMPRESSION: 1. Unremarkable pelvic ultrasound. Reviewed, dictated and finalized at location B. ROLLER
== END ==
PROVIDERS: PCP Family Medicine; Visit Provider Nurse Practitioner
DX: N92.0 Excessive and frequent menstruation with regular cycle (principal)
CPT/HCPCS: 76856

== ENCOUNTER → 2022-06-15 13:59 | Outpatient (CLI) | payer OTHER, SELFPAY ==
--- NOTE | ~2022-06-15 | MM_ITS ---
EXAMINATION: MM scrn rocky implant BI w magda HISTORY: Screening mammogram TECHNIQUE: Craniocaudal and mediolateral oblique 3-D tomosynthesis images with implant displacement a nd synthetic 2-D images were generated. Craniocaudal and mediolateral oblique views of the breasts wi thout implant displacement were obtained using full field digital mammography. CAD analysis was submi tted and interpreted. COMPARISON: Comparison to multiple prior studies sequentially, with oldest reviewed study dated 03/2018. BREAST PARENCHYMAL COMPOSITION: The breasts are heterogeneously dense, which may obscure small masses FINDINGS: There are new bilateral breast masses in the upper outer quadrant of the right breast and l ower outer quadrant of the left breast. There are no suspicious calcifications or architectural disto rtion. IMPRESSION: 1. New bilateral breast masses. 2. Additional spot compression and mediolateral views with possible follow-up breast ultrasound recom mended. BI-RADS Category 0: Incomplete: Needs additional imaging evaluation. Reviewed, dictated and finalized at location A. IMPRESSION: 1. New bilateral breast masses. 2. Additional spot compression and mediolateral views with possible follow-up b reast ultrasound recommended. BI-RADS Category 0: Incomplete: Needs additional imaging evaluation.
== END ==
PROVIDERS: PCP Family Medicine; Visit Provider Nurse Practitioner
DX: Z12.31 Encounter for screening mammogram for malignant neoplasm of breast (principal); R92.8 Other abnormal and inconclusive findings on diagnostic imaging of breast
CPT/HCPCS: 77063; 77067

== ENCOUNTER → 2022-07-01 09:44 | Outpatient (CLI) | payer OTHER, SELFPAY ==
--- NOTE | ~2022-07-01 | MMUS_ITS ---
EXAMINATION: MM diag rocky implant BI w magda, US breast BI complete HISTORY: Bilateral breast masses reported on 06/15/2022 bilateral screening mammogram TECHNIQUE: Additional 3-D tomosynthesis images of both breasts were performed and synthetic 2-D image s were generated. CAD analysis was submitted and interpreted. High resolution complete bilateral chuck st ultrasound examination including all 4 quadrants and subareolar areas was performed. COMPARISON: 06/15/2022 bilateral implant screening mammogram FINDINGS: MAMMOGRAPHIC FINDINGS: Approximately 1.5 cm low-density circumscribed mass is suggested in the outer mid right breast. The heterogeneously dense stroma may obscure additional masses in either breast. Bilateral complete b reast ultrasound examination was performed. ULTRASOUND: There are multiple sonolucent cysts, complicated cysts and benign-appearing circumscribed hypoechoic lesions scattered in each breast, with circumscribed margins and through transmission, benign in appe arance. Largest of these is a right breast 10:00 subareolar 7 x 9.4 x 16.5 mm simple cyst. However, in the right breast at 10:00 5 cm from the nipple there is irregular ill-defined anti-parall el hypoechoic area with internal vascularity and posterior shadowing, measuring at least 4.4 mm dimen kel. Ultrasound-guided biopsy is recommended. In the left breast 3:00 subareolar area there is an irregular hypoechoic 4.4 x 3.8 x 3.6 mm lesion wi th internal vascularity. Ultrasound-guided biopsy of this lesion is recommended as well. IMPRESSION: 1. Suspicious right 10:00 and left 3:00 lesions 2. Ultrasound-guided biopsy of right 10:00 and 3:00 lesions is recommended BI-RADS category 4, suspicious findings. Dr. Elliott telephoned the report and ultrasound-guided biopsy recommendations on 07/01/2022 at 1155 hour s to [facility]. Reviewed, dictated and finalized at location A. IMPRESSION: 1. Suspicious right 10:00 and left 3:00 lesions 2. Ultrasound-guided biopsy of right 10:00 and 3:00 lesions is recommended BI-RADS category 4, suspicious findings. Dr. Elliott telephoned the report and ultrasound-guided biopsy recommendations on 07/01/2022 at 1155 hours to [facility].
== END ==
PROVIDERS: PCP Obstetrics & Gynecology Gynecology; Visit Provider Obstetrics & Gynecology Gynecology
DX: R92.8 Other abnormal and inconclusive findings on diagnostic imaging of breast (principal)
CPT/HCPCS: 76641; 77062; 77066; G0279

== ENCOUNTER 2022-07-12 12:39 | Outpatient (CLI) | payer OTHER, SELFPAY ==
--- NOTE | ~2022-07-12 | MMUS_ITS ---
EXAMINATION: US GUIDED NEEDLE BIOPSY DATE: 07/12/2022 15:08 CDT INDICATION: Right 10:00 and left 3:00 breast masses reported on 07/01/2022 bilateral breast ultrasoun d examination TECHNIQUE AND FINDINGS: The left breast 3:00 lesion was scanned, and was sonolucent without internal vascularity or suspiciou s shadowing. The sonographic appearance is benign. The right 10:00 lesion was biopsied: The risks and potential benefits of the procedure were discussed with the patient, and written inform ed consent was obtained. Timeout procedure was performed. After sterile preparation of the right chuck st, 1% lidocaine was utilized for local anesthesia. A 14G spring-loaded biopsy gun needle was advanced to the edge of the region of interest from an infe rior approach utilizing sonographic guidance. A total of three tissue core samples were obtained thr ough the lesion. An Inrad tissue marker clip was then placed at the biopsy site. Hemostasis was achi eved. A sterile bandage was applied. The patient tolerated procedure well and there was no evidence of immediate complication. The patien t was given verbal instructions prior to departing from the department. A two view mammogram was perf ormed to document tissue marker clip placement. The tissue samples were submitted to surgical patholo gy for histologic analysis. IMPRESSION: 1. Successful ultrasound guided biopsy of left 10:00 breast mass with biopsy marker placement. Eric tesfaye refer to pathology report for histologic analysis. Reviewed, dictated and finalized at Location A. Reviewed, dictated and finalized at location A. IMPRESSION: 1. Successful ultrasound guided biopsy of left 10:00 breast mass with biopsy m arker placement. Please refer to pathology report for histologic analysis. IMPRESSION: 1. Successful ultrasound guided biopsy of left 10:00 breast mass with biopsy m arker placement. Please refer to pathology report for histologic analysis.
== END 2022-07-12 12:40 | disposition home or self-care (01) ==
PROVIDERS: PCP Family Medicine; Visit Provider Surgery
DX: N63.11 Unspecified lump in the right breast, upper outer quadrant (principal); N63.20 Unspecified lump in the left breast, unspecified quadrant
CPT/HCPCS: 19083; 76642; 88305; A4648

== ENCOUNTER 2023-08-15 13:44 | Outpatient (CLI) | payer OTHER, SELFPAY ==
--- NOTE | ~2023-08-15 | MM_ITS ---
EXAMINATION: MM scrn rocky implant BI w magda HISTORY: Screening mammogram TECHNIQUE: Craniocaudal and mediolateral oblique 3-D tomosynthesis images with implant displacement a nd synthetic 2-D images were generated. Craniocaudal and mediolateral oblique views of the breasts wi thout implant displacement were obtained using full field digital mammography. CAD analysis was submi tted and interpreted. COMPARISON: Comparison to multiple prior studies sequentially, with oldest reviewed study dated 03/2018. BREAST PARENCHYMAL COMPOSITION: Dense: The breasts are heterogeneously dense, which may obscure small masses FINDINGS: There is a new mass in the of the lower central aspect of the left breast. The right breast is stable without evidence for malignancy. IMPRESSION: 1. New left breast mass lower central left breast. 2. Additional mammographic views and possible breast ultrasound are recommended. BI-RADS Category 0: Incomplete: Needs additional imaging evaluation. Reviewed, dictated and finalized at location B. IMPRESSION: 1. New left breast mass lower central left breast. 2. Additional mammographic views and possible breast ultrasound are recommended . BI-RADS Category 0: Incomplete: Needs additional imaging evaluation.
== END 2023-08-15 13:45 ==
LOC: MICIMG 13:45
PROVIDERS: PCP Nurse Practitioner; Visit Provider Nurse Practitioner
DX: Z12.31 Encounter for screening mammogram for malignant neoplasm of breast (principal); R92.8 Other abnormal and inconclusive findings on diagnostic imaging of breast
CPT/HCPCS: 77063; 77067

== ENCOUNTER 2023-10-04 09:17 | Outpatient (CLI) | payer OTHER, SELFPAY ==
--- NOTE | ~2023-10-04 | MMUS_ITS ---
EXAMINATION: MM diag rocky implant LT w magda, US breast LT limited HISTORY: Left breast mass TECHNIQUE: Additional 3-D tomosynthesis spot compression images of the left breast were performed and synthetic 2-D images were generated. CAD analysis was submitted and interpreted. High resolution vu ited left breast ultrasound was performed. COMPARISON: 08/07/2023, 07/01/2022, 06/15/2022 BREAST PARENCHYMAL COMPOSITION:Dense: The breasts are heterogeneously dense, which may obscure small masses. FINDINGS: MAMMOGRAPHIC FINDINGS: Spot compression views demonstrate a persistent low-density 6-7 mm ovoid mass at the 6:00 position le ft breast. ULTRASOUND: At the 5:00 position left breast, 4 cm from the nipple, there is a 5 mm round circumscribed wider adarsh n tall simple cyst. At the 5:00 left left breast periareolar region, there is an additional 8 mm simp le appearing cyst. IMPRESSION: No findings which are suspicious for malignancy. Small left breast cysts, as detailed above. BI-RADS Category 2: Benign finding(s). Reviewed, dictated and finalized at location M. IMPRESSION: No findings which are suspicious for malignancy. Small left breast cysts, as detailed above. BI-RADS Category 2: Benign finding(s).
== END 2023-10-04 09:18 ==
LOC: MICIMG 09:17
PROVIDERS: PCP Family Medicine; Visit Provider Obstetrics & Gynecology Gynecology
DX: R92.8 Other abnormal and inconclusive findings on diagnostic imaging of breast (principal); N60.02 Solitary cyst of left breast
CPT/HCPCS: 76642; 77061; 77065; G0279

== ENCOUNTER 2023-10-09 09:39 | Emergency (ER) | payer OTHER, SELFPAY ==
--- NOTE | ~2023-10-09 | XR_ITS ---
EXAMINATION: XR chest 2V 10/09/2023 10:26 INDICATION: Left-sided chest pain PROCEDURE: 2 view chest COMPARISON: 12/28/2021 FINDINGS: The lungs are clear. The cardiomediastinal silhouette is within normal limits. There are no pleural effusions. There is no pneumothorax suspected. IMPRESSION: 1: NO ACUTE CARDIOPULMONARY DISEASE. Reviewed, dictated and finalized at location B.
[2023-10-09 09:40] VITALS: BP 113/70; PULSE 67; RESP 16; TEMP 36.7; O2SAT 99
[2023-10-09 09:46] VITALS: BP 132/82; PULSE 74; RESP 16; TEMP 36.4; O2SAT 97
--- NOTE | 2023-10-09 09:49 | ECG_ITS ---
Test Date: 2023-10-09 09:51:21 Measurements Intervals [place] Rate: 64 P: 43 IL: 114 QRS: 47 QRSD: 90 T: 36 QT: 375 QTc: 388 Interpretive Statements SINUS RHYTHM WITH SINUS ARRHYTHMIA WITH SHORT IL INTERVAL BASELINE ARTIFACT- II, III, AVR, AVL, AVF BORDERLINE ECG No previous ECG available for comparison Electronically Signed On 10-09-2023 11:28:15 CDT by Jason Diaz D.O.
[2023-10-09 09:50] VITALS: PULSE 71
[2023-10-09 09:53] VITALS: O2SAT 98
[2023-10-09 10:15] VITALS: BP 115/77; PULSE 62; RESP 15; O2SAT 94
[2023-10-09] MEDS: ASPIRIN 81 MG CHEWABLE TABLET 324 MG PO (10:31)
[2023-10-09 10:36] LABS: Basophils Percent Auto 0.3 % (0.2-1.2); Eosinophils Absolute Auto 0.2 K/mm3 (0-0.3); Eosinophils Percent Auto 1.3 % (0-4.4); Hematocrit 44.6 % (37.0-47.0); Hemoglobin 14.6 g/dL (12.0-15.0); Immature Granulocyte Absolute 0.04 K/mm3 (0.00-0.031); Immature Granulocyte Percent A 0.4 % (0-0.5); Lymphocytes Absolute Auto 3.97 K/mm3 (0.9-3.2); Lymphocytes Percent Auto 34.9 % (18.3-44.2); Mean Corpuscular HGB Conc 32.7 g/dl (32-36); Mean Corpuscular Hemoglobin 31.4 pg (26-34); Mean Corpuscular Volume 95.9 fl (80-100); Mean Platelet Volume 10.5 fl (7.4-10.4); Monocytes Absolute Auto 0.9 K/mm3 (0.1-0.6); Monocytes Percent Auto 8.1 % (2.6-8.5); Neutrophils Absolute Auto 6.3 K/mm3 (1.3-6.7); Platelet Count Result 449 k/mm3 (150-375); Red Blood Count 4.65 M/mm3 (4.2-5.4); Red Cell Distribution Width 13.9 % (11.5-14.5); White Blood Count 11.4 K/mm3 (4.5-10.0)
[2023-10-09 10:49] LABS: Alanine Aminotransferase 11 U/L (6-35); Albumin Level 3.9 g/dL (3.5-5.1); Alkaline Phosphatase 56 U/L (38-126); Anion Gap 7 mmol/L (4-12); Aspartate Amino Transferase 14 U/L (14-36); Bilirubin,Total 0.3 mg/dL (0.2-1.3); Blood Urea Nitrogen 16 mg/dL (7-17); Calcium 8.2 mg/dL (8.4-10.2); Carbon Dioxide 21 mmol/L (22-30); Chloride 108 mmol/L (98-107); Estimated Glomerular Filt Rate > 60; Glucose 93 mg/dL (65-110); Lipase 38 U/L (23-300); Potassium 3.6 mmol/L (3.4-5.0); Sodium 136 mmol/L (137-145)
[2023-10-09 10:54] LABS: Prothrombin Time 13.5 Seconds (11.1-14.7)
[2023-10-09 10:55] LABS: Partial Thromboplastin Time 23.9 Seconds (22.3-36.8)
[2023-10-09 10:59] LABS: Troponin I < 0.012 ng/mL (0.000-0.034)
--- NOTE | 2023-10-09 12:17 | ED.GENADULT ---
HPI - General Adult General Chief complaint: Chest Pain Stated complaint: R sided facial numbness, chest pain, lip swelling Time Seen by Provider: 10/09/23 09:46 History of Present Illness HPI narrative: Patient is a 47-year-old female who presents ER with some swelling to her right lower jaw. She has been having intermittent swelling to her skin in her arms and legs over last month. Over the last couple days she has had it in her lips and today it is in her chin. No new medications. No difficulty breathing or swelling. She received a steroid injection at an urgent care yesterday. She does report stress at home because she has a significant other the medic brain injury and her son just went to camp. She has not seen an science technicians. No new lotions or perfumes or detergents. Related Data Allergies Allergy/AdvReac Type Severity Reaction Status Date / Time No Known Allergies Allergy Unknown Verified 10/09/23 09:45 Review of Systems Review of Systems: All systems reviewed & are unremarkable except as noted in HPI and below Constitutional: Constitutional: Reports no additional constitutional complaints ENT: Reports system reviewed and no additional complaints, except as documented Cardiovascular: Cardiovascular: Reports no additional cardiovascular complaints Gastrointestinal: Gastrointestinal: Reports no additional gastrointestinal complaints Musculoskeletal: Musculoskeletal: Reports no additional musculoskeletal complaints Integumentary/Breasts: Skin/Breast: Denies pruritus, Denies erythema and Reports rash Neurologic: Comments: Tingling right chin PMFSH Past Medical History Medical History Nephrolithiasis Overweight (BMI 25.0-29.9) Urolithiasis Surgical History Surgical History H/O nephrolithotomy with removal of calculi Hx of breast augmentation Family History Family History Grandparent Breast cancer Social History Social History Social History: Smoking packs per day: 0.75 Smoking cigarettes per day: 15.0 Years smoked: 20 Smoking pack-years: 15.00 Smoking status: Former smoker Tobacco type: cigarettes Second hand tobacco smoke exposure: Yes Alcohol intake: current Drinks per week: 2 Alcohol use details: social drinker Substance use: never Substance use type: does not use Living arrangements: with family Occupation/Education: occupation Gender identity (if verbalized by the patient): Female Sexual Orientation (if Verbalized by the Patient): Straight or Heterosexual Exam Narrative: GENERAL: Well-appearing, well-nourished, and in no acute distress. HEAD: Normocephalic, atraumatic. ENT: Mucous membranes moist. No intraoral abscess. No tooth tenderness. Mild edema right lower jaw at the chin CHEST: Clear to auscultation. No respiratory distress. HEART: Regular rate and rhythm. No murmur heard. Normal peripheral pulses. ABDOMEN: Soft, nontender, nondistended. EXTREMITIES: Normal range of motion. No edema. SKIN: Warm, dry, no rash. NEURO: No focal deficits. Normal sensation in the face sharp touch. Alert and oriented x3. PSYCH: Normal mood and affect. Course Course Emergency Course: Suspect component of acute idiopathic urticaria given photos that were shown to me on her cellphone. Recommend antihistamines and she will likely need to see a global process owner. She was given Benadryl while here. Vital Signs Vital signs: Vital Signs Temperature 98.0 F 10/09/23 09:40 Pulse Rate 67 10/09/23 09:40 Respiratory Rate 16 10/09/23 09:40 Blood Pressure 113/70 10/09/23 09:40 Pulse Oximetry 99 10/09/23 09:40 Oxygen Delivery Room Air 10/09/23 09:40 Temperature 97.6 F 10/09/23 09:46 Pulse Rate 62 0
[2023-10-09 12:44] VITALS: BP 124/78; PULSE 92; RESP 15; O2SAT 100
== END 2023-10-09 12:48 | disposition home or self-care (01) ==
PROVIDERS: Emergency Provider Emergency Medicine; PCP Family Medicine
DX: L50.1 Idiopathic urticaria (principal); E66.3 Overweight; Z68.38 Body mass index [BMI] 38.0-38.9, adult; Z87.442 Personal history of urinary calculi; Z87.891 Personal history of nicotine dependence; R94.31 Abnormal electrocardiogram [ECG] [EKG]; R07.9 Chest pain, unspecified
CPT/HCPCS: 36415; 71046; 80053; 83690; 84484; 85025; 85610; 85730; 93005; 99284; A9270

== ENCOUNTER 2023-10-15 03:45 | Emergency (ER) | payer OTHER, SELFPAY ==
[2023-10-15 03:50] VITALS: BP 119/66; PULSE 84; RESP 15; TEMP 37.1; O2SAT 98
--- NOTE | 2023-10-15 06:01 | ED.HA ---
HPI - Headache General Chief Complaint: Headache Stated Complaint: migraine x4 days Time Seen by Provider: 10/15/23 06:00 Source: patient Mode of arrival: ambulatory Limitations: no limitations History of Present Illness HPI Narrative: Patient presents with a bilateral headache of 4 days duration. Patient was recently seen for an allergic reaction given medication. She states when she stopped taking medication her face became swollen and her pain started. She previously had a history of frequent headaches that were being managed by her primary care physician but she has not had a headache in awhile. She states this does feel similar to previous headaches other than the duration has lasted. She has never required seeing a neurologist. Denies any trauma, anticoagulation. She has mild photophobia as well as some phonophobia. No fevers although she did felt hot and cold. Her at home also has intermittently been getting headaches but this is his baseline in the setting of TBI. Related Data Allergies Allergy/AdvReac Type Severity Reaction Status Date / Time No Known Allergies Allergy Unknown Verified 10/15/23 03:55 PMFSH Past Medical History Medical History History of frequent headaches Nephrolithiasis Overweight (BMI 25.0-29.9) Urolithiasis Surgical History Surgical History H/O nephrolithotomy with removal of calculi Hx of breast augmentation Family History Family History Grandparent Breast cancer Social History Social History Social History: Smoking packs per day: 0.75 Smoking cigarettes per day: 15.0 Years smoked: 20 Smoking pack-years: 15.00 Smoking status: Former smoker Tobacco type: cigarettes Second hand tobacco smoke exposure: Yes Alcohol intake: current Drinks per week: 2 Alcohol use details: social drinker Substance use: never Substance use type: does not use Living arrangements: with family Additional living arrangements comments: Occupation/Education: occupation Gender identity (if verbalized by the patient): Female Sexual Orientation (if Verbalized by the Patient): Straight or Heterosexual Exam Narrative: GENERAL: Well-appearing, well-nourished, and in no acute distress. HEAD: Normocephalic, atraumatic. EYES: Non injected, non icteric. PERRL ENT: Nares clear, no rhinorrhea or epistaxis. NECK: Supple. No meningismus CHEST: Speaking in full sentences. No respiratory distress. HEART: Regular rate and rhythm. . ABDOMEN: Soft, nondistended. EXTREMITIES: Normal range of motion. No edema. SKIN: Warm, dry, no rash. NEURO: No focal deficits. Alert and oriented x3. Sensation intact to gross touch throughout. PSYCH: Normal mood and affect. Course Vital Signs Vital signs: Vital Signs Temperature 98.8 F 10/15/23 03:50 Pulse Rate 84 10/15/23 03:50 Respiratory Rate 15 10/15/23 03:50 Blood Pressure 119/66 10/15/23 03:50 Pulse Oximetry 98 10/15/23 03:50 Oxygen Delivery Room Air 10/15/23 03:50 Temperature 98.8 F 10/15/23 03:50 Pulse Rate 84 10/15/23 03:50 Respiratory Rate 15 10/15/23 03:50 Blood Pressure 119/66 10/15/23 03:50 Pulse Oximetry 98 10/15/23 03:50 Oxygen Delivery Room Air 10/15/23 03:50 MDM - Headache MDM Narrative Medical decision making narrative: After obtaining the patient's history and performing a physical exam, the headache is most likely due to benign etiology. The neurological examination is non-focal, there are no high-risk features on history, vital signs are within normal limits, and the patient is non-toxic appearing. The Ddx for the patient's headache is tension headache, migraine, or other headache of non-emergent etiology. Unlikely SA
[2023-10-15] MEDS: diphenhydrAMINE HCl INJ 50 MG/ML VIAL 25 MG IV PUSH (06:29)
[2023-10-15] MEDS: SODIUM CHLORIDE 0.9% IV 1,000 ML 999 ML IV CONT (06:29)
[2023-10-15] MEDS: KETOROLAC 15 MG/ML VIAL (*BKC) IV PUSH (06:31)
[2023-10-15] MEDS: PROCHLORPERAZINE EDISYLATE 10 MG/2 ML VIAL IV PUSH (06:31)
[2023-10-15] MEDS: ACETAMINOPHEN 500 MG TABLET 1000 MG PO (07:06)
[2023-10-15] MEDS: dexAMETHasone 2 MG TABLET 10 MG PO (07:07)
[2023-10-15] MEDS: MAGNESIUM SULF 1 GM/D5W 100 ML 1 GM/100 ML BAG IVPB (07:09)
[2023-10-15 07:54] VITALS: BP 111/76; PULSE 81; RESP 14; O2SAT 97
== END 2023-10-15 08:21 | disposition home or self-care (01) ==
PROVIDERS: Emergency Provider Student in an Organized Health Care Education/Training Program; PCP Family Medicine
DX: R51.9 Headache, unspecified (principal)
CPT/HCPCS: 96361; 96365; 96375; 99284; A9270; J0780; J1200; J1885; J3475; J7030; J8540

== ENCOUNTER 2023-10-30 10:08 | Emergency (ER) | payer OTHER, SELFPAY ==
--- NOTE | ~2023-10-30 | US_ITS ---
LEFT UPPER EXTREMITY VENOUS ULTRASOUND Ordering provider: Latosha Lakhani PA-C History: . possible thrombus in L internal jugular vein . Comparison: None. FINDINGS: --JUGULAR: Patent and free of thrombus. Normal compressibility, phasic flow and augmentation. --SUBCLAVIAN: Patent and free of thrombus. Normal compressibility, phasic flow and augmentation. --AXILLARY: Patent and free of thrombus. Normal compressibility, phasic flow and augmentation. --BRACHIAL: Patent and free of thrombus. Normal compressibility, phasic flow and augmentation. --CEPHALIC: Patent and free of thrombus. Normal compressibility, phasic flow and augmentation. --BASILIC: Patent and free of thrombus. Normal compressibility, phasic flow and augmentation. --RADIAL: Patent and free of thrombus. Normal compressibility, phasic flow and augmentation. --ULNAR: Patent and free of thrombus. Normal compressibility, phasic flow and augmentation. IMPRESSION: Negative left upper extremity venous US. No deep vein thrombosis. Reviewed, dictated and finalized at location A.
--- NOTE | ~2023-10-30 | XR_ITS ---
EXAMINATION: XR chest 2V DATE: 10/30/2023 11:21 INDICATION: Dysphagia. Nausea and vomiting. TECHNIQUE: Frontal and lateral views of the chest were obtained. COMPARISON: Chest 2 views 10/09/2023 FINDINGS: There is no pneumonia, pleural effusion, or pneumothorax. The heart size is normal. Breast implants are noted. IMPRESSION: 1. No acute cardiopulmonary disease. Reviewed, dictated and finalized at location A.
--- NOTE | ~2023-10-30 | CT_ITS ---
EXAMINATION: CT soft tissue neck w con DATE: 10/30/2023 12:13 INDICATION: Dysphagia. Painful swallowing. TECHNIQUE: Computed tomography (CT) of the neck was performed with 75 mL Omnipaque-350 intravenous co ntrast. Automated exposure control and iterative reconstruction technique were employed. The dose-orly gth product was 471.09 mGy-cm. COMPARISON: None FINDINGS: Orbits are normal. The paranasal sinuses are clear. Mild mucosal thickening the bilateral maxillary, ethmoid and left sphenoid sinuses. There is small amount of dependently layering mucus in the left sp henoid sinus suggesting acute sinusitis. Mastoid air cells and middle ear cavities are clear. There i s some debris/cerumen in the bilateral external auditory canals. Submandibular and parotid glands are symmetric. Thyroid gland is unremarkable. There are scattered normal-sized lymph nodes in the neck, no lymphadenopathy. No masses identified. Airway is unremarkable normal epiglottis, aryepiglottic fo lds and parapharyngeal soft tissues. Superior mediastinum and visualized portion of the upper lungs a re unremarkable. Bilateral breast implants. Aortic arch and the arteries arising from the arch and in the neck and normal in caliber with no evident dissection or hemodynamically significant stenosis. S mall eccentric filling defect in the left internal jugular vein at the level of the angle of the maury ible raising concern for thrombus. Mild to moderate cervical spondylosis most prominent at C5-C6. IMPRESSION: 1. Suggestion of possible small amount of thrombus within the left internal jugular vein at the level of the angle of the mandible, etiology which would have a wide differential. Differential would incl ude flow artifact related to inflow from an unopacified vein correlate clinically and could consider ultrasound for further evaluation. Otherwise unremarkable neck CT. Reviewed, dictated and finalized at location A. IMPRESSION: 1. Suggestion of possible small amount of thrombus within the left internal jug ular vein at the level of the angle of the mandible, etiology which would have a wide differential. Differential would include flow artifact related to inflow from an unopacified vein correlate clinically and could consider ultrasound fo r further evaluation. Otherwise unremarkable neck CT.
[2023-10-30 10:42] VITALS: BP 125/99; PULSE 104; RESP 16; TEMP 36.8; O2SAT 98
[2023-10-30 10:55] LABS: BEDSIDEPREGUCG Negative
[2023-10-30 11:07] LABS: Basophils Absolute Auto 0.1 K/mm3 (0.0-0.1); Basophils Percent Auto 0.5 % (0.2-1.2); Eosinophils Absolute Auto 0.4 K/mm3 (0-0.3); Eosinophils Percent Auto 4.6 % (0-4.4); Hematocrit 46.5 % (37.0-47.0); Immature Granulocyte Absolute 0.03 K/mm3 (0.00-0.031); Immature Granulocyte Percent A 0.3 % (0-0.5); Lymphocytes Absolute Auto 2.23 K/mm3 (0.9-3.2); Lymphocytes Percent Auto 23.1 % (18.3-44.2); Mean Corpuscular HGB Conc 32.3 g/dl (32-36); Mean Corpuscular Volume 96.1 fl (80-100); Mean Platelet Volume 10.1 fl (7.4-10.4); Monocytes Absolute Auto 0.9 K/mm3 (0.1-0.6); Monocytes Percent Auto 8.9 % (2.6-8.5); Neutrophils Absolute Auto 6.1 K/mm3 (1.3-6.7); Neutrophils Percent Auto 62.6 % (45.5-73.1); Platelet Count Result 418 k/mm3 (150-375); Red Blood Count 4.84 M/mm3 (4.2-5.4); Red Cell Distribution Width 13.3 % (11.5-14.5); White Blood Count 9.7 K/mm3 (4.5-10.0)
[2023-10-30 11:20] LABS: Alanine Aminotransferase 46 U/L (6-35); Albumin Level 4.5 g/dL (3.5-5.1); Alkaline Phosphatase 68 U/L (38-126); Anion Gap 10 mmol/L (4-12); Aspartate Amino Transferase 27 U/L (14-36); Bilirubin,Total 1.1 mg/dL (0.2-1.3); Blood Urea Nitrogen 11 mg/dL (7-17); Calcium 9.5 mg/dL (8.4-10.2); Carbon Dioxide 24 mmol/L (22-30); Chloride 102 mmol/L (98-107); Estimated CRCL calculation 67 ml/min; Estimated Glomerular Filt Rate > 60; Glucose 80 mg/dL (65-110); Magnesium 2.1 mg/dL (1.6-2.3); Potassium 3.8 mmol/L (3.4-5.0); Sodium 136 mmol/L (137-145)
[2023-10-30 11:32] LABS: Add Urine Microscopic? YES; Appearance Urine Clear (Clear); Bacteria Urine None Seen /hpf; Bilirubin Urine Negative (Negative); Blood Urine 1+ (Negative); Color Urine Dark Yellow (Yellow); Glucose Urine UA Negative (Negative); Ketones Urine Trace mg/dL (Negative); Leukocyte Esterase Ur Trace LEU/UL (Negative); Nitrate Urine Negative (Negative); Non Pathogenic Casts 0-2; Protein Urine Negative (Negative); Squamous Epithelial Cell Urine Occasional /hpf (Few); WBC Urine 0-5 /hpf (0-3)
--- NOTE | 2023-10-30 11:45 | ED.GENADULT ---
HPI - General Adult General Chief complaint: Unspecified Stated complaint: unable to swallow Time Seen by Provider: 10/30/23 10:43 Source: patient and old records reviewed Mode of arrival: ambulatory Limitations: no limitations History of Present Illness HPI narrative: Patient is a 47-year-old female who presents the ED with report of dysphagia. Patient reports she has had painful swallowing, difficulty keeping solids down for the last 8-10 days. She states she has been unable to keep down any food, reporting it will seem to get stuck [facility] down her throat and then come back up undigested. She has been able to keep down some fluids. She was seen by her primary care doctor today and referred to the ED for further evaluation and to rule out electrolyte derangement/ Dehydration. Patient does also report having intermittent migraine headaches and facial swelling over the last few weeks. She is scheduled to see a neurologist tomorrow and an inventory audit clerk within the next 2 weeks. Patient does have history of migraines Related Data Allergies Allergy/AdvReac Type Severity Reaction Status Date / Time No Known Allergies Allergy Unknown Verified 10/30/23 08:58 Review of Systems Review of Systems: All systems reviewed & are unremarkable except as noted in HPI. All systems reviewed & are unremarkable except as noted in HPI and below PMFSH Past Medical History Medical History History of frequent headaches Nephrolithiasis Overweight (BMI 25.0-29.9) Urolithiasis Surgical History Surgical History H/O nephrolithotomy with removal of calculi Hx of breast augmentation Family History Family History Grandparent Breast cancer Social History Social History Social History: Smoking packs per day: 0.75 Smoking cigarettes per day: 15.0 Years smoked: 20 Smoking pack-years: 15.00 Smoking status: Former smoker Tobacco type: cigarettes Second hand tobacco smoke exposure: Yes Alcohol intake: current Alcohol use details: social drinker Substance use: never Substance use type: does not use Do You Feel Safe in your Home?: Yes Lack of Transportation: No Lack of Food: Never True Current Housing: I Have Housing Concerned About Future Housing: No Difficulty Paying Gas/Electric Bills: No Difficulty Paying for Meds: No Currently Unemployed: No Education: Don't Know Difficulty w/ Childcare or Family Care: No Living arrangements: with family Occupation/Education: occupation 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 HEAD: Normocephalic, atraumatic. ENT: MMs moist. No posterior pharynx erythema, no tonsillar hypertrophy or exudate. no stridor or trismus. No swelling of lips /throat/ tongue. NECK: Supple, normal ROM. No appreciable lymphadenopathy, swelling externally. No palpable thyroid nodules. RESPIRATORY: Airway patent, respirations nonlabored. Clear to auscultation bilaterally, no rales, rhonchi, wheezing. CARDIOVASCULAR: Regular rate and rhythm without murmurs, rubs, or gallops. MUSCULOSKELETAL: Moves all extremities. No gross deformities. SKIN: Warm, dry, normal color. NEURO: A&O X3. Speech clear. Cranial nerves II-XII grossly intact. Steady gait. No ataxic movements. No focal deficits. PSYCHIATRIC: Appropriate mood and affect. Normal interaction. Course Vital Signs Vital signs: Vital Signs Temperature 98.2 F 10/30/23 10:42 Pulse Rate 104 H 10/30/23 10:42 Re
[2023-10-30] MEDS: GLUCAGON FOR INJ 1 MG VIAL IM (11:48)
[2023-10-30] MEDS: BELLADONNA ALK/PHENOB ELIX 10 ML, MAG HYDROX/ALUMINUM HYD/SIMETH 30 ML, LIDOCAINE HCL 2... PO (11:48)
--- NOTE | 2023-10-30 12:15 | PC.NURSE ---
THREW VIAL IN NEEDLE BIN BY MISTAKE, HAD TO PULL SECOND DOSE
[2023-10-30 13:41] VITALS: BP 140/84; PULSE 84; RESP 16; O2SAT 99
[2023-10-30 15:19] VITALS: BP 128/84; PULSE 80; RESP 16; O2SAT 98
== END 2023-10-30 15:20 | disposition home or self-care (01) ==
PROVIDERS: Emergency Provider Physician Assistant; PCP Family Medicine
DX: R13.10 Dysphagia, unspecified (principal); R93.0 Abnormal findings on diagnostic imaging of skull and head, not elsewhere classified; Z87.442 Personal history of urinary calculi; Z87.891 Personal history of nicotine dependence
CPT/HCPCS: 36415; 70491; 71046; 80053; 81001; 81025; 83735; 85025; 93971; 96372; 99284; A9270; J1610; Q9967

== ENCOUNTER 2023-11-06 01:10 | Day surgery (SDC) | payer OTHER, SELFPAY ==
[2023-11-02 12:24] VITALS: BMI 25.7
--- NOTE | 2023-11-06 12:53 | WPDANESEPPF ---
Anes - Initial Pre Proc Eval Procedure: Operation Date: 11/06/23 15:00 Proposed Procedures p Esophagogastroduodenoscopy & Colonoscopy - Robbie Contreras MD Date/Time: 11/06/23 12:53 Surgeon: Robbie Contreras MD Pre Op Diagnosis: Dysphagia Patient Data Age: 47 Gender: F Height: 1.63 m Weight: 68.1 kg Allergies Allergy/AdvReac Type Severity Reaction Status Date / Time No Known Allergies Allergy Unknown Verified 11/02/23 12:21 Home Medications Medication Instructions Recorded Confirmed Type sertraline 100 mg tablet 100 mg PO DAILY #90 tabs 09/15/23 11/02/23 Rx cetirizine 10 mg tablet (Zyrtec) 10 mg PO DAILY #14 tabs 10/09/23 11/02/23 Rx cyclobenzaprine 10 mg tablet 10 mg PO TID #30 tabs 10/30/23 11/02/23 Rx rizatriptan 5 mg tablet See Rx Instructions PO .COMPLEX 10/30/23 11/02/23 Rx #14 tabs Patient hx anesthesia problems: none Family hx anesthesia problems: none Results Review: All pre-operative results and documents have been reviewed as part of the pre-operative evaluation. [facility] Past Medical History Medical History History of frequent headaches Nephrolithiasis Overweight (BMI 25.0-29.9) Urolithiasis Surgical History Surgical History H/O nephrolithotomy with removal of calculi Hx of breast augmentation Family History Family History Grandparent Breast cancer Social History Social History Social History: Smoking packs per day: 0.75 Smoking cigarettes per day: 15.0 Years smoked: 20 Smoking pack-years: 15.00 Smoking status: Never smoker Tobacco type: cigarettes Second hand tobacco smoke exposure: Yes Alcohol intake: current Alcohol use details: social drinker Substance use: never Substance use type: does not use Do You Feel Safe in your Home?: Yes Lack of Transportation: No Lack of Food: Never True Current Housing: I Have Housing Concerned About Future Housing: No Difficulty Paying Gas/Electric Bills: No Difficulty Paying for Meds: No Currently Unemployed: No Education: Don't Know Difficulty w/ Childcare or Family Care: No Living arrangements: other Additional living arrangements comments: With sp Occupation/Education: occupation 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[employer] Gender identity (if verbalized by the patient): Female Sexual Orientation (if Verbalized by the Patient): Straight or Heterosexual Anes - Eval Final PreProcedure Day of Procedure 11/06/23 12:53 Patient weight: normal Heart: regular rate and rhythm Lungs: clear to auscultation Airway: Mallampati scale class II Neurological: alert and oriented Last oral intake: >/= 8 hours ASA classification: II Emergent: no Anesthetic plan: proceed Anesthesia type and monitoring: general GIVS and standard monitoring Results Review: All pre-operative results and documents have been reviewed as part of the pre-operative evaluation. Informed Consent: The patient's anesthetic plan and its attendant risks and benefits were discussed with the patient/family/POA. Questions were solicited and answers provided to the satisfaction of the patient/family/POA.
[2023-11-06 12:57] VITALS: BP 90/62; PULSE 125; RESP 18; TEMP 36.2; O2SAT 99
[2023-11-06] MEDS: LACTATED RINGERS 1,000 ML 150 ML IV CONT (13:10)
--- NOTE | 2023-11-06 13:26 | WPDHPUPDATE1 ---
History and Physical Update Update Date/Time: 11/06/23 13:26 History and Physical has been reviewed, including an updated exam of the patient. There are NO changes in the patient's condition. Risks, benefits, and alternatives have been discussed and questions answered. Patient agrees to proceed with procedure.
[2023-11-06 13:38] LABS: BEDSIDEPREGUCG Negative
--- NOTE | 2023-11-06 13:40 | SUR.OPER ---
EGD: [id number] COLON Start: 1340
[2023-11-06 13:51] VITALS: BP 111/83; PULSE 109; RESP 35; O2SAT 100
[2023-11-06 14:01] VITALS: BP 100/83; PULSE 106; RESP 19; O2SAT 99
[2023-11-06 14:11] VITALS: BP 107/77; PULSE 96; RESP 20; O2SAT 99
== END 2023-11-06 14:29 | disposition home or self-care (01) ==
PROVIDERS: PCP Family Medicine; Referring Provider Nurse Practitioner; Visit Provider Internal Medicine Gastroenterology
PROC: 0DJ08ZZ Inspection of Upper Intestinal Tract, Via Natural or Artificial Opening Endoscopic (ICD-10-PCS; CPT 43235; principal; 2023-11-06 15:00)
DX: Z12.11 Encounter for screening for malignant neoplasm of colon (principal); K63.5 Polyp of colon; D12.4 Benign neoplasm of descending colon; K64.8 Other hemorrhoids; K29.50 Unspecified chronic gastritis without bleeding; K21.00 Gastro-esophageal reflux disease with esophagitis, without bleeding; Z79.1 Long term (current) use of non-steroidal anti-inflammatories (NSAID); Z98.890 Other specified postprocedural states; Z87.891 Personal history of nicotine dependence; Z87.442 Personal history of urinary calculi; Z80.3 Family history of malignant neoplasm of breast
CPT/HCPCS: 43239; 45385; 88305; J2704; J7120

== ENCOUNTER 2023-12-01 06:59 | Outpatient (CLI) | payer OTHER, SELFPAY ==
--- NOTE | ~2023-12-01 | CT_ITS ---
EXAMINATION: CT soft tissue neck w con DATE: 12/01/2023 07:37 INDICATION: Right pyriform sinus lesion. TECHNIQUE: Computed tomography (CT) of the neck was performed with 75 mL Omnipaque-350 intravenous co ntrast. Automated exposure control and iterative reconstruction technique were employed. The dose-orly gth product was 419.38 mGy-cm. COMPARISON: CT neck 10/30/2023 FINDINGS: There is mild scarring at the lung apices. The pharynx and larynx are unremarkable. There a re no pathologically enlarged lymph nodes. There is no visible plaque in the proximal internal caroti d arteries. The internal jugular veins are normal. There is mild mucosal thickening in the paranasal sinuses. The mastoid air cells are normal. There is cerumen in the external auditory canals. There is moderate spondylosis at C5-C6. IMPRESSION: 1. Unremarkable pharynx and larynx. Reviewed, dictated and finalized at location A.
== END 2023-12-01 07:00 | disposition home or self-care (01) ==
PROVIDERS: PCP Family Medicine; Visit Provider Physician Assistant
DX: R13.10 Dysphagia, unspecified (principal); J34.89 Other specified disorders of nose and nasal sinuses
CPT/HCPCS: 70491; Q9967

== ENCOUNTER 2024-01-02 08:09 | Outpatient (CLI) | payer OTHER, SELFPAY ==
--- NOTE | ~2024-01-02 | XR_ITS ---
EXAMINATION: XR UGIAC w barium swallow DATE: 01/02/2024 08:58 INDICATION: Dysphagia TECHNIQUE: The patient drank thick barium, gas-producing crystals, and thin barium. A total of 1535 f luoroscopic images of the hypopharynx, esophagus, stomach, and proximal small bowel were obtained. Fl uoroscopy exposure time was 2.2 minutes. Total DAP was 9.084 mGycm^2 COMPARISON: None. FINDINGS: The pharynx is symmetric and without evidence of mass lesion or mucosal irregularity. There is some p ooling of contrast in the piriform sinuses after the swallow. The esophagus is normal without mass or stricture. Esophageal motility is normal. There is no hiatal hernia. There was no gastroesophageal r eflux with provocative maneuvers. The stomach and proximal small bowel are normal. IMPRESSION: 1. Pooling of a small amount of contrast in the piriform sinuses after the initial swallow. Otherwise normal esophagram and upper GI study. Reviewed, dictated and finalized at location A. IMPRESSION: 1. Pooling of a small amount of contrast in the piriform sinuses after the init ial swallow. Otherwise normal esophagram and upper GI study.
== END 2024-01-02 08:10 | disposition home or self-care (01) ==
PROVIDERS: PCP Family Medicine; Visit Provider Nurse Practitioner
DX: R13.10 Dysphagia, unspecified (principal)
CPT/HCPCS: 74246

== ENCOUNTER 2024-01-29 13:30 | Outpatient (RCR) | payer OTHER, SELFPAY ==
--- NOTE | 2024-01-22 12:22 | STOPEVAL1 ---
Assessment and note entered by Carmelina Garcia PROCUREMENT REPRESENTATIVE Evaluation Information Assessment Status Evaluation ICD-10 Condition Codes (ST) R13.13 Subjective Information The patient reports that since October of 2023, she suddenly began having trouble swallowing solids, that she must alternate with water in order to wash it down. With meats, she takes the smallest of bites, chews thoroughly, and alternate with liquids. Denies difficulty with liquids. Patient reports she has lost about 30 pounds since then. Patient reports thin liquids go down without difficulty however thicker liquids, such as certain protein shakes, requires several swallows to clear the throat. Patient was admitted to [facility] for 8 days for malnutrition in November where she underwent various swallowing tests including Modified Barium Swallow study, regular barium swallow, CT scan, and other tests and all have generally indicated no significant difficulties. She was diagnosed with acid reflux and now is on medication for it. Reported Pain Level Pain Score 0: Self Report Assessment ST Clinical Summary BEDSIDE SWALLOW EVALUATION Patient reports difficulty swallowing since October of 2023. She reports she was hospitalized at [facility] for 8 days for malnutrition and underwent a series of swallowing and other tests to determine cause and no specific physical cause was found. Patient described diagnosis as globus which is a sensation of feeling of having a lump or something stuck in the throat and that she was told the problem was in my head. Today the patient consumed water, pudding, and brandee cracker pieces with same report, that the pudding and the brandee cracker pieces needed multiple swallows and liquid wash. She reported no difficulty including no multiple swallows required to swallow the water. Patient was instructed in the use of gastroesophageal reflux guidelines, description of silent reflux and how that affects people's swallowing and throat sensations, and also use of safe swallowing strategies including small bites and sips, alternate solids and liquids, use gravies, sauces, etc. to add moisture to solids, use of head flexion. She was then instructed in the use of several base of tongue retraction exercises/hard swallows, along with a laryngeal elevation exercise to assist with improved swallowing. Patient voiced understanding of all recommendations and exercises and agreed to try them for at least one week and then return next week to discuss progress and plan. Therapist did discuss with patient that sometimes her complaints of difficulty swallowing in absence of a physical reason can be caused by a traumatic event; she reported that she had been caring for her and then her son left for boot camp in October. Patient will be seen 1x weekly for four weeks with discharge to occur when patient feels her swallowing has improved to an acceptable level. Thank you for this referral. Plan of Care Interventions Treatment of Swallowing D ST Services Indicated Yes Treatment Frequency and 1x weekly for four visits Duration These treatments will address the objective and functional deficits as defined above. The patient will be advanced safely and appropriately in order for the patient to progress towards his/her prior level of function. Additional exercises will be introduced and as well as a comprehensive home exercise program upon discharge, if needed, ?to ensure carryover of functional gains achieved in the clinic. This treatment plan has been reviewed and agreement upon by the patient.
--- NOTE | 2024-01-29 12:46 | OPREHPOC ---
Outpatient Therapy Plan of Care This is a Multidisciplinary Plan of Care that may contain components documented by all disciplines (PT, OT, and ST.) ST Problem 1 ST Problem #[address] Goal 1 Goal / Goal Update 1. Patient will voice and demonstrate understanding of anatomy and physiology related to swallowing impairment, treatment plan, home exercise program, compensatory programs, and risks and benefits related to direct Speech Therapy tasks. Target Visit [address] Problem #[address] Goal 1 Goal / Goal Update 1. Complete base of tongue retraction exercises 10 or more times to improve squeezing of the base of tongue in order to invert the epiglottis and close the airway. 2. Complete hard, effortful swallows and swallows with chin tuck against resistance to improve the strength of the swallow 10 repetitions. 3. Complete laryngeal elevation exercises 10 or more times to improve elevation of the epiglottis to the base of tongue in order to improve epiglottic inversion and opening of the upper esophageal sphincter. 4. Patient will report improved swallowing skills by describing improved movement of solids through the pharynx. Target Visit 4
--- NOTE | 2024-02-06 13:26 | PCSTNOTE ---
Therapist called patient's cell phone and left message concerning how she was doing, i.e. return for another visit or discharge. Awaiting return call.
--- NOTE | 2024-02-07 13:51 | STOPDC ---
Assessment and note entered by Carmelina Garcia TECHNICAL BUSINESS ANALYST Evaluation Information Assessment Status Discharge - Pt Not Presen Assessment ST Clinical Summary DISCHARGE SUMMARY Patient was seen for an initial evaluation of her swallowing with a treatment for instructions of safe swallowing strategies and swallowing strengthening exercises, and with one follow-up treatment for review instructions and answer any questions. At that point patient reported she felt her swallowing was improving and that the instructions were helpful. She determined that she could continue independently. Therapist made two follow-up phone calls to patient's cell phone asking her to return call to discuss progress, and then final call to inform her of discharge. No further ST is indicated at this time. Patient is welcome to contact this therapist with any questions or concerns. Thank you for this referral. Plan of Care ST Services Indicated No
== END 2024-02-07 15:56 | disposition home or self-care (01) ==
LOC: ANHST 13:30
PROVIDERS: PCP Family Medicine; Visit Provider Nurse Practitioner Family
DX: R13.10 Dysphagia, unspecified (principal)
CPT/HCPCS: 92526; 92610

== ENCOUNTER 2024-02-14 10:05 | Emergency (ER) | payer OTHER, SELFPAY ==
[2024-02-14 10:35] VITALS: BP 104/76; PULSE 103; RESP 18; TEMP 36.3; O2SAT 100
[2024-02-14 11:41] VITALS: BP 123/78; PULSE 78; PULSE 83; RESP 15; O2SAT 98
[2024-02-14] MEDS: EPINEPHrine HCL INJ 1 MG/ML AMPUL 0.3 MG IM (11:41)
[2024-02-14] MEDS: diphenhydrAMINE HCl INJ 50 MG/ML VIAL IV PUSH (11:50)
[2024-02-14] MEDS: dexAMETHasone SOD PHOS INJ 10 MG/ML 1 ML VIAL IV PUSH (11:50)
[2024-02-14] MEDS: FAMOTIDINE 20 MG/2 ML VIAL 40 MG IV PUSH (11:50)
[2024-02-14 11:52] VITALS: O2SAT 98
[2024-02-14 11:54] VITALS: BP 119/89; PULSE 89; RESP 17; O2SAT 97
[2024-02-14 12:48] VITALS: BP 123/79; PULSE 80; RESP 19; O2SAT 96
--- NOTE | 2024-02-14 13:10 | ED_ITS ---
HPI - General Adult General Chief complaint: Allergic Reaction Stated complaint: facial swelling Time Seen by Provider: 02/14/24 11:14 History of Present Illness HPI narrative: This is a 48-year-old female with a history multiple allergies presenting with facial swelling. Patient says that she was camping this weekend. She states that is allergic to just about everything outside. Patient developed swelling of her lips and around her eyes. This is her typical allergic reaction and she is being treated by administrative hearing officer. patient states that she does have difficulty swallowing but this is chronic been going on for months. She is received a extensive workup for this and does not believe there is any change in her ability to swallow. She is not having any difficulty breathing. She did lose her voice 2 days ago. Patient denies any hives, nausea vomiting diarrhea dizziness or lightheadedness. Related Data Home Medications Medication Instructions Recorded Confirmed amitriptyline 25 mg tablet 25 mg PO QHS 12/05/23 12/20/23 famotidine 20 mg tablet 20 mg PO DAILY 12/05/23 12/20/23 ramelteon 8 mg tablet 8 mg PO QHS 12/05/23 12/20/23 Allergies Allergy/AdvReac Type Severity Reaction Status Date / Time cat dander Allergy Swelling Verified 02/14/24 11:23 dog dander Allergy Swelling Verified 02/14/24 11:23 grass pollen Allergy Swelling Verified 02/14/24 11:24 mold Allergy Swelling Verified 02/14/24 11:23 tree and shrub pollen Allergy Swelling Verified 02/14/24 11:22 [facility] Past Medical History Medical History History of frequent headaches Nephrolithiasis Overweight (BMI 25.0-29.9) Urolithiasis Surgical History Surgical History H/O nephrolithotomy with removal of calculi Hx of breast augmentation Family History Family History Grandparent Breast cancer Social History Social History Social History: Smoking packs per day: 0.75 Smoking cigarettes per day: 15.0 Years smoked: 20 Smoking pack-years: 15.00 Smoking status: Never smoker Tobacco type: cigarettes Second hand tobacco smoke exposure: Yes Alcohol intake: current Alcohol use details: social drinker Substance use: never Substance use type: does not use Do You Feel Safe in your Home?: Yes Lack of Transportation: No Lack of Food: Never True Current Housing: I Have Housing Concerned About Future Housing: No Difficulty Paying Gas/Electric Bills: No Difficulty Paying for Meds: No Currently Unemployed: No Education: Don't Know Difficulty w/ Childcare or Family Care: No Living arrangements: other Additional living arrangements comments: With sp Occupation/Education: occupation 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 Head: Mild swelling of the patient's lip, no swelling of the tongue or uvula, no stridor, no tachypnea EYES: EOMI, mild right periorbital swelling NOSE: Atraumatic NECK: Trachea midline RESPIRATORY: No increased rate of breathing, clear to auscultation CARDIOVASCULAR: RRR, ABDOMINAL: Non-distended MUSCULOSKELETAl: No obvious deformities NEURO: Alert. Moving 4/4 extremities SKIN:: Warm, dry. Normal color PSYCHIATRIC: Normal affect Course Vital Signs Vital signs: Vital Signs Temperature 97.4 F L 02/14/24 10:35 Pulse Rate 103 H 02/14/24 10:35 Respiratory Rate 18 02/14/24 10:35 Blood Pressure 104/76 02/14/24 10:35 Pulse Oximetry 100 02/14/24 10:35 Oxygen Delivery Room Air 02/14/24 10:35 Temperature 97.4 F L 02/14/24 10:35 Pulse Rate 80 02/14/24 12:48 Respiratory Rate 19 02/14/24 12:48 Blood Pressure 123/79 02/14/24 12:48 Pulse Oximetry 96 02/14/24 12:48 Oxygen Delivery Room Air 02/14/24 11:52 Medical Decision Making [facility] Narrative Medical decision making narrative: -Course:48-year-old female with history of multiple allergies presenting with lip and eye swelling After a camping trip. Swelling seems to be stable over the last 48 hours. She said she did lose her voice although I do not see any swelling of her tongue uvula or hear any stridor. Patient was treated for allergic reaction with improvement. Patient was monitored for the ED for several hours.Review of the EMR shows she has had extensive workups in the past related to her throat and swallowing without a clear diagonosis. We discussed admission versus discharge and the patient is comfortable going home to follow- up with her administrative hearing officer as needed. She has been instructed to return to the ED if she develops difficulty breathing so will worsening difficulty swallowing or any stridor. Patient has an epi pen at home. -DDX includes but is not limited to: Allergic reaction, angioedema, pharyngitis -Co-morbidities complicating care: multiple allergies -Interventions: Dexamethasone, Benadryl, Pepcid, epinephrine -Shared decision making / Disposition:discharged. Vital Signs Vital Signs: Vital Signs Temperature 97.4 F L 02/14/24 10:35 Pulse Rate 103 H 02/14/24 10:35 Respiratory Rate 18 02/14/24 10:35 Blood Pressure 104/76 02/14/24 10:35 Pulse Oximetry 100 02/14/24 10:35 Oxygen Delivery Room Air 02/14/24 10:35 Temperature 97.4 F L 02/14/24 10:35 Pulse Rate 80 02/14/24 12:48 Respiratory Rate 19 02/14/24 12:48 Blood Pressure 123/79 02/14/24 12:48 Pulse Oximetry 96 02/14/24 12:48 Oxygen Delivery Room Air 02/14/24 11:52 Discharge Plan Discharge Clinical Impression: Allergies Patient Disposition: Home, Self-Care Instructions: Antibiotic Form Prescriptions: No Action dexlansoprazole [Dexilant] 60 mg capsule,biphase delayed releas 60 mg PO DAILY Qty: 90 3RF ramelteon 8 mg tablet 8 mg PO QHS famotidine 20 mg tablet 20 mg PO DAILY amitriptyline 25 mg tablet 25 mg PO QHS pantoprazole 40 mg tablet,delayed release (DR/EC) 40 mg PO QAM Qty: 30 5RF cetirizine [Zyrtec] 10 mg tablet 10 mg PO DAILY Qty: 14 0RF sertraline 100 mg tablet 100 mg PO DAILY Qty: 90 1RF cyclobenzaprine 10 mg tablet 10 mg PO TID Qty: 30 0RF rizatriptan 5 mg tablet See Rx Instructions PO .COMPLEX Qty: 14 0RF Rx Instructions: take 1 tablet at onset of headache; if no relief, may repeat 1 tablet after at least 2 hrs PO lansoprazole 30 mg capsule,delayed release(DR/EC) 30 mg PO DAILY Qty: 30 11RF Follow-up/Referrals: Deangelo Knight MD [Primary Care Provider] -
[2024-02-14 13:33] VITALS: BP 128/82; PULSE 89; RESP 17; O2SAT 98
== END 2024-02-14 13:34 | disposition home or self-care (01) ==
PROVIDERS: Emergency Provider Emergency Medicine; PCP Family Medicine
DX: T78.40XA Allergy, unspecified, initial encounter (principal); E66.3 Overweight; Z68.23 Body mass index [BMI] 23.0-23.9, adult; F17.210 Nicotine dependence, cigarettes, uncomplicated; Z87.442 Personal history of urinary calculi; Z79.899 Other long term (current) drug therapy; X58.XXXA Exposure to other specified factors, initial encounter
CPT/HCPCS: 96372; 96374; 96375; 99284; J0171; J1100; J1200

== ENCOUNTER 2024-06-24 15:13 | Outpatient (CLI) | payer OTHER, SELFPAY ==
--- NOTE | ~2024-06-24 | US_ITS ---
Pelvic ultrasound. Clinical History: Excessive and frequent menstruation Technique: Realtime transvaginal scanning of the pelvis was performed. Color flow Doppler and Doppler spectral analysis were performed. Findings: The uterus is retroverted.. The endometrial stripe has a thickness of 17 mm. No focal mass is identified. The right ovary measures 2.6 x 1.5 x 1.5 cm. No significant right ovarian or adnexal mass is seen. The left ovary measures 2.3 x 3.0 x 2.3 cm. No significant left ovarian or adnexal mass is seen. Vascular flow present in both ovaries on Doppler spectral analysis. There is no evidence of free fluid in the cul de sac. Impression: No significant abnormality seen. Reviewed, dictated and finalized at [facility]. Impression: No significant abnormality seen.
== END 2024-06-24 15:14 | disposition home or self-care (01) ==
LOC: MICIMG 15:14
PROVIDERS: PCP Family Medicine; Visit Provider Nurse Practitioner
DX: N92.0 Excessive and frequent menstruation with regular cycle (principal)
CPT/HCPCS: 76830

== ENCOUNTER 2024-07-15 00:40 | Day surgery (SDC) | payer OTHER, SELFPAY ==
[2024-07-04 13:12] VITALS: BMI 26.6
--- NOTE | 2024-07-04 13:23 | PC.NURSE ---
Report to the Outpatient Waiting Room, entrance under the green pavilion located off [facility], at time ___1230____ on date ___07/15/24____. Planned Procedure Time: ___1430____.? Time changes happen often and if your time is changed the preop area will call you the afternoon before. - You and your visitor will be asked to self-screen and do not enter if you have any COVID symptoms. Please call surgeon if you need to reschedule. - A mask is optional within the hospital at this time. Patients may have clear liquids (water, carbonated beverages, clear teas, apple juice) until 3 hours prior to surgery with a maximum of 20 ounces. - No food from midnight until time of surgery and no smoking, or chewing tobacco (or any form of nicotine). No chewing gum, candy or mints. Take only the following medications with a SIP of water on the morning of surgery: amitriptyline and sertraline____ DO NOT STOP ANY OF YOUR OTHER PRESCRIPTION MEDICATIONS PRIOR TO SURGERY EXCEPT THE FOLLOWING Hold all vitamins and supplements for 3 days per anesthesiologist. Please no make-up, nail croatian, hairspray, perfume, deodorant, or body powder the day of surgery.? No jewelry (including any body piercings) or valuables the day of surgery, leave them at home.? Please take a shower or bath the night before, or the morning of, surgery with an antibacterial soap.? Wear comfortable, loose fitting clothing.? - Jewelry must be removed prior to entering the operating room.? Rings and piercings that are not removed may be cut off. - The hospital will not accept responsibility for valuables.? - Please leave all valuables, including medications, at home the day of surgery. If you are going home after surgery, a licensed sales driver must drive you home.? - NO public transportation without another adult if you receive anesthesia. - We recommend that an adult stay with you for 24 hours following discharge. - We also recommend that you do not drive, make important decision, drink alcoholic beverages, or take any drugs that were not prescribed by your health care provider for at least 24 hours after your discharge time. Follow any additional instructions given to you from your surgeon. Telephone instructions given to Marianne and asked if any additional questions and then verbalized understanding. Patient advised to call surgeon office or pre surgery nurse liaison [phone] if any additional questions.
--- OUTSIDE RECORDS SUMMARY | 2024-07-15 00:43 | XMS_ITS ---
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 * Medical History: Objective: * Vitals: Assessment: Plan: * Treatment: * Billing Information: * Visit Code: * Procedure Codes: * Electronic signature of Merry Lopez MD on 07/15/2024 at 12:43 AM CDT Sign off status: Pending * Provider: Leigh Ann Lopez MD Date: 11/15/2023 Generated for Perla leos/Hitesh/eTransmitting on: 0 07/15/2024 12:43 AM CDT
--- OUTSIDE RECORDS SUMMARY | 2024-07-15 00:43 | XMS_ITS | Patient Health Record ---
Author Organization [facility] [place] ([address]) Address [address] [place] [address] Care Team Providers Care Corrugator Operator Name Role Phone JohnPriyanka Unavailable [phone] Reason For Referral No Information Plan Of Treatment No Information Insurance Providers Payer Name Payer Address Payer Phone Subscriber Number Group Number Insured Name Patient Relationship to Insured Coverage Start Date Coverage End Date [facility] [address] [place] [address] [id number] Abdiel Alexis Spouse - patient is the spouse of the insured
--- OUTSIDE RECORDS SUMMARY | 2024-07-15 00:43 | XMS_ITS | Clinical Summary ---
Author Organization [facility] [place] [address] [place] [address] Care Team Providers Care Scissors Sharpener Name Role Phone Unavailable Primary Care Provider Unavailabl e Allergies No known active allergies Medications No known medications Active Problems No known active problems Encounters Date Type Department Care Team Description 07/02/2024 External Device Data [facility] Provider, Abstract 06/05/2024 External Device Data [facility] Provider, Abstract 05/29/2024 External Device Data [facility] Provider, Abstract 05/28/2024 External Device Data [facility] Provider, Abstract 05/25/2024 External Device Data [facility] Provider, Abstract 05/25/2024 External Device Data [facility] Provider, Abstract 05/22/2024 External Device Data [facility] Provider, Abstract 05/08/2024 External Device Data [facility] Provider, Abstract 04/30/2024 External Device Data [facility] Provider, Abstract from Last 3 Months Social History Tobacco Use Types Packs/Day Years Used Date Smoking Tobacco: Unknown Tobacco Cessation:Counseling Given: Not Answered Comments Unknown Sex and Gender Information Value Date Recorded Sex Assigned at Not on file Legal Sex Female 3:33 PM CDT Gender Identity Not on file Sexual Orientation Not on file Last Filed Vital Signs Vital Sign Reading Time Taken Comments Blood Pressure 109/75 10/07/2023 3:45 PM CDT Pulse 88 10/07/2023 3:45 PM CDT Temperature 36.7 C (98 F) 10/07/2023 3:45 PM CDT Respiratory Rate 14 10/07/2023 3:45 PM CDT Oxygen Saturation 99% 10/07/2023 3:45 PM CDT Inhaled Oxygen Concentration - - Weight 72.6 kg (160 lb) 10/07/2023 3:45 PM CDT Height 162.6 cm (5' 4 ) 10/07/2023 3:45 PM CDT Body Mass Index 27.46 10/07/2023 3:45 PM CDT Plan of Treatment Health Maintenance Due Date Last Done Comments Pre-Diabetes and Diabetes Screening 1975 DTAP/TDAP/TD VACCINES (1 - Tdap) 1996 HEPATITIS B VACCINES (1 of 3 - 19+ 3-dose series) 1996 HPV/Cotest (21-29) 1998 CERVICAL CANCER SCREENING 12/23/2007 HPV/Cotest (30-65) 12/23/2007 PAP SMEAR 12/23/2007 BREAST CANCER SCREENING 2017 COLORECTAL SCREENING 2022 Colorectal Cancer Screening 2022 FIT-DNA Q 3 years 2022 FIT/FOBT Q 1 year 2022 Flex Sig/CT Colonography Q 5 years 2022 INFLUENZA VACCINE (#1) 2023 HPV VACCINES Aged Out No longer eligi ble based on patient's age to complete this topic Insurance
--- OUTSIDE RECORDS SUMMARY | 2024-07-15 00:43 | XMS_ITS | Continuity of Care Document ---
Author Name [facility] Organization [facility] Care Team Providers Care Chief Environmental Commitment Officer Name Role Phone [facility] Unavailable Unavailable Problems Combined list of problems from Department of Defense and Veterans Affairs facilities. It does not include entries that were removed or entered in error. Problem Status Onset Date Problem Type Date of Resolution Comments Source NICOTINE DEPENDENCE - IN REMISSION Active Condition [facility] NICOTINE DEPENDENCE Active Condition [facility] Diagnosis: ICD-10-CM Z63.6 Dependent relative needing care at home Active Diagnosis [facility] Medications Combined list of outpatient medications from Department of Defense and [facility] facilities.Medications provided include 1) outpatient medications from the last 15 months, and 2) patient-reported medications. Medication Details Route Status Patient Instructions Prescription Expires Prescription Number Last Dispense Date Ordering Provider Order Date Order Qty Source ESTRADIOL-N ORETHINDRON E ACETAT (estradiol/ norethindro ne acetate), 0.5-0.1 MG, TABLET, ORAL, INGENUS PHARMAC, 28 ea. BLIST PACK Cancele d [id number] : 2023 0 Pharmac y Data Transac tion Service Facilit y HYDROXYZINE HCL (hydroxyzin e HCl), 25 MG, TABLET, ORAL, RISING PHARM, 500 ea. BOTTLE Active [id number] 4 2023 60 Pharmac y Data Transac tion Service Facilit y OXYBUTYNIN CHLORIDE (oxybutynin chloride), 5 MG, TABLET, ORAL, NOVITIUM/AN I PH, 1000 ea. BOTTLE Active [id number] 4 2023 90 Pharmac y Data Transac tion Service Facilit y TRAZODONE HCL (trazodone HCl), 50 MG, TABLET, ORAL, AUROBINDO PHARM, 100 ea. BOTTLE Active [id number] 4 2023 30 Pharmac y Data Transac tion Service Facilit y TRIAMCINOLO NE ACETONIDE (triamcinol one acetonide), 0.1 %, LOTION, TOPICAL, MICRO Let's Jock,, 60 ml BOTTLE Active [id number] 4 2023 60 Pharmac y Data Transac tion Service Facilit y Allergies, Adverse Reactions, Alerts Combined list of allergies from Department of Defense and Veterans Affairs facilities. It does not include entries that were removed or entered in error. Substance Category Reaction Severity Reaction type Status Date Reported Comments Source No Known Allergies Drug allergy (disorder) active 04/20/2011 [facility] Encounters Combined list of: 1) Encounters from Department of Veterans Affairs facilities going backup to the last 18 months, not all [place] inpatient encounters are included; 2) Encounters from the Department of [facility] facilities going backup to 280 months. Location Location Details Encounter Type Encounter Number Reason For Visit Attending Provider ADM Date DC Date Status Disposition Source [facility]) OUTPATIENT [id number] LADARI[facility] PRO 04/22 Released w/o Limitations [facility]) OUTPATIENT [id number] Smoking Cessati on Class [facility]O SEPULVEDA F 04/29 Released w/o Limitations [facility](P [facility]) [facility]) OUTPATIENT [id number] smoking cessati on LADARIUS PRO A 05/11 Released w/o Limitations [facility]) [facility] ASSMT/REAS SESSMENT [id number] Diagnos is: ICD-10- CM Z63.6 Depende nt relativ e needing care at home LAURA SINGH 04/14 [facility] Outpatient Encounter [id number] 04/19 [facility] ASSMT/REAS SESSMENT [id number] Diagnos is: ICD-10- CM Z63.6 Depende nt relativ e needing care at home BRANNON DOMINGUEZ 08/14 [facility] [id number] [facility] alessandra Between Visit [id number] 11/22 0055A-[address] [facility] [place] [facility] y [facility] [id number] 164 11/22 Ambulat ory Pharmac y [facility] Outpatient Encounter [id number] 11/29 [facility] HC PRO PHONE CALL 5-10 MIN [id number] Diagnos is: ICD-10- CM Z63.6 Depende nt relativ e needing care at home BRANNON DOMINGUEZ A L 12/05 [facility] HC PRO PHONE CALL 11-20 MIN [id number] Diagnos is: ICD-10- CM Z63.6 Depende nt relativ e needing care at home BRANNON DOMINGUEZ A L 03/08 [facility] Procedures Combined list of: 1) Procedures from Department of Veterans Affairs facilities going back up to thelast 18 months, not all [place] non-surgical procedures are included; 2) All procedures from the Department of Defense facilities. Procedure Procedure Type Code Date Perfomer Comments Sourc e No data available for this section Ambulatory Pharmacy Health And Behav Intervention, Each 15 Min Grp (2 Or More) Health And Behav Intervention, Each 15 Min Grp (2 Or More) [id number] 04/29/2011 [facility]O SEPULVEDA [facility] HEALTH AND BEHAVIOR INTERVENTION, EACH 15 MINUTES, [id number]; GROUP (2 OR MORE PATIENTS) 04/29/2011 [facility] Social History Combined list of available smoking, tobacco, and other social history from Department of Defense and Veterans Affairs facilities. Social History Type Response Date Comment Sourc e This section is an empty social history section. [facility] Assessment and Plan Combined list of future care activities from Department of Defense and Veterans Affairs facilities (e.g., assessment and plan notes, appointments, orders, and referrals). Additional future care activities may be listed in the Plan of Care section. Result Assessment and Plan Date Source Assessment and Plan No data available for this section 07/15/2024 Ambulatory Pharmacy Functional Status Combined list of recent functional and cognitive assessments recorded at Department of Defense and Veterans Affairs (VA).VA Functional [place] Measurement (FIM) Scale: 1 = Total Assistance (Subject = 0% +), 2 = Maximal Assistance (Subject = 25% +), 3 = Moderate Assistance (Subject = 50% +), 4 = Minimal Assistance (Subject = 75% +), 5 = Supervision, 6 = Modified [place] (Device), 7 = Complete [place] (Timely, Safely). Assessment Date/Time Source Assessment Type Assessment Skill Assessment Score Assessment Details No data available for this section
--- NOTE | 2024-07-15 08:31 | P.HP_ITS ---
History of Present Illness History of Present Illness Consent: Risks, benefits, and alternatives have been discussed and questions answered. Patient agrees to proceed with procedure. Chief complaint: menorrhagia Narrative: Marianne Alexis is a 48 year old female with regular but heavy cycles. It was recommended to proceed with D&C hysteroscopy. Risks of infection, bleeding, perforation, and possible pathology are discussed. Patient voices understanding and agrees to proceed. Review of Systems Review of Systems: not repeated day of surgery; patient states no changes in status [facility] Past Medical History Medical History (Updated 07/15/24 @ 08:34 by Stacey Wolf MD) (normal spontaneous vaginal delivery) X2 Anxiety History of frequent headaches Overweight (BMI 25.0-29.9) BMI 26.3 Urolithiasis Nephrolithiasis Surgical History Surgical History (Updated 07/15/24 @ 08:33 by Stacey Wolf MD) History of breast biopsy 2008 benign, 2022 benign Hx of breast augmentation H/O nephrolithotomy with removal of calculi Family History Family History Grandparent Breast cancer Social History Social History Social History: Smoking packs per day: 0.75 Smoking cigarettes per day: 15.0 Years smoked: 32 Smoking pack-years: 24.00 Smoking status: Current every day smoker Tobacco type: cigarettes Second hand tobacco smoke exposure: Yes Alcohol intake: current Alcohol use details: not everyday Substance use: current Substance use type: marijuana Other substance usage details: 1-2 times a month will take a marijuana gummy to sleep Do You Feel Safe in your Home?: Yes Lack of Transportation: No Lack of Food: Never True Current Housing: I Have Housing Concerned About Future Housing: No Difficulty Paying Gas/Electric Bills: No Difficulty Paying for Meds: No Currently Unemployed: No Education: Don't Know Difficulty w/ Childcare or Family Care: No Living arrangements: with family Additional living arrangements comments: With sp Occupation/Education: occupation 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 [employer] Gender identity (if verbalized by the patient): Female Sexual Orientation (if Verbalized by the Patient): Straight or Heterosexual Meds Home Medications and Allergies Home Medications ?Medication ?Instructions ?Recorded ?Confirmed ?Type amitriptyline 25 mg tablet 25 mg PO QHS 12/05/23 07/04/24 History lansoprazole 30 mg capsule,delayed 30 mg PO DAILY #30 caps 12/21/23 07/04/24 Rx release sertraline 100 mg tablet See Rx Instructions .Route 04/23/24 07/04/24 Rx .COMPLEX #90 tabs Allergies Allergy/AdvReac Type Severity Reaction Status Date / Time cat dander Allergy Swelling Verified 07/04/24 13:11 dog dander Allergy Swelling Verified 07/04/24 13:11 grass pollen Allergy Swelling Verified 07/04/24 13:11 mold Allergy Swelling Verified 07/04/24 13:11 tree and shrub pollen Allergy Swelling Verified 07/04/24 13:11 Exam Const: General: healthy appearing and alert Orientation/consciousness: patient oriented x3 Resp: Effort & Inspection: normal respiratory effort GI: GI Palp: Yes Soft to palpation, No Tenderness to palpation present (GI) an d No Palpable mass present : External Female Exam: normal external appearance Speculum Exam - Vagina: normal appearance of the vagina and normal vaginal discharge Speculum Exam - Cervix: normal appearance of the cervix Bimanual exam- vagina & uterus: uterine size normal and consistency normal Bimanual Exam- Adnexa, other: normal adnexae and No adnexal tenderness Neuro: General: patient oriented x3 Assessment and Plan Assessment and plan (1) Menorrhagia: Code(s): N92.0 - Excessive and frequent menstruation with regular cycle Status: Acute Assessment and Plan: Plan to proceed with D&C hysteroscopy
--- NOTE | 2024-07-15 08:31 | WPDHPUPDATE1 ---
History and Physical Update Update Date/Time: 07/15/24 08:31 History and Physical has been reviewed, including an updated exam of the patient. There are NO changes in the patient's condition. Risks, benefits, and alternatives have been discussed and questions answered. Patient agrees to proceed with procedure.
[2024-07-15] MEDS: ACETAMINOPHEN 500 MG TABLET 1000 MG PO (13:13)
[2024-07-15 13:17] VITALS: BP 112/81; PULSE 69; RESP 16; TEMP 36.7; O2SAT 98
[2024-07-15 13:25] LABS: BEDSIDEPREGUCG Negative (Negative)
[2024-07-15] MEDS: LACTATED RINGERS 1,000 ML 30 ML IV CONT ×2 (13:27→14:17)
--- NOTE | 2024-07-15 13:44 | WPDANESEPPF ---
Anes - Initial Pre Proc Eval Procedure: Operation Date: 07/15/24 14:30 Proposed Procedures p Hysteroscopy Dilation and Curettage - Stacey Wolf MD Date/Time: 07/15/24 13:44 Surgeon: Stacey Wolf MD Pre Op Diagnosis: menorrhagia Patient Data Age: 48 Gender: F Height: 1.6 m Weight: 68.9 kg Last Vital Signs Temp 36.7 C 07/15/24 13:17 Pulse 69 07/15/24 13:17 Resp 16 07/15/24 13:17 BP 112/81 07/15/24 13:17 Pulse Ox 98 07/15/24 13:17 O2 Del Method Room Air 07/15/24 13:17 Allergies Allergy/AdvReac Type Severity Reaction Status Date / Time cat dander Allergy Swelling Verified 07/15/24 13:12 dog dander Allergy Swelling Verified 07/15/24 13:12 grass pollen Allergy Swelling Verified 07/15/24 13:12 mold Allergy Swelling Verified 07/15/24 13:12 tree and shrub pollen Allergy Swelling Verified 07/15/24 13:12 Home Medications ?Medication ?Instructions ?Recorded ?Confirmed ?Type amitriptyline 25 mg tablet 25 mg PO QHS 12/05/23 07/15/24 History lansoprazole 30 mg capsule,delayed 30 mg PO DAILY #30 caps 12/21/23 07/15/24 Rx release sertraline 100 mg tablet See Rx Instructions .Route 04/23/24 07/15/24 Rx .COMPLEX #90 tabs Laboratory Tests 07/15/24 13:17 POC Urine HCG, Qual Negative (Negative) Patient hx anesthesia problems: none Family hx anesthesia problems: none Results Review: All pre-operative results and documents have been reviewed as part of the pre-operative evaluation. [facility] Past Medical History Medical History (Updated 07/15/24 @ 08:34 by Stacey Wolf MD) (normal spontaneous vaginal delivery) X2 Anxiety History of frequent headaches Overweight (BMI 25.0-29.9) BMI 26.3 Urolithiasis Nephrolithiasis Surgical History Surgical History (Updated 07/15/24 @ 08:33 by Stacey Wolf MD) History of breast biopsy 2008 benign, 2022 benign Hx of breast augmentation H/O nephrolithotomy with removal of calculi Family History Family History Grandparent Breast cancer Social History Social History Social History: Smoking packs per day: 0.75 Smoking cigarettes per day: 15.0 Years smoked: 32 Smoking pack-years: 24.00 Smoking status: Current every day smoker Tobacco type: cigarettes Second hand tobacco smoke exposure: Yes Alcohol intake: current Alcohol use details: not everyday Substance use: current Substance use type: marijuana Other substance usage details: 1-2 times a month will take a marijuana gummy to sleep Do You Feel Safe in your Home?: Yes Lack of Transportation: No Lack of Food: Never True Current Housing: I Have Housing Concerned About Future Housing: No Difficulty Paying Gas/Electric Bills: No Difficulty Paying for Meds: No Currently Unemployed: No Education: Don't Know Difficulty w/ Childcare or Family Care: No Living arrangements: with family Additional living arrangements comments: With sp Occupation/Education: occupation 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 [employer] Gender identity (if verbalized by the patient): Female Sexual Orientation (if Verbalized by the Patient): Straight or Heterosexual Anes - Eval Final PreProcedure Day of Procedure 07/15/24 13:44 Patient weight: overweight Heart: regular rate and rhythm Lungs: clear to auscultation Airway: Mallampati scale class II Neurological: alert and oriented Last oral intake: >/= 8 hours ASA classification: II Emergent: no Anesthetic plan: proceed Anesthesia type and monitoring: general GIVS and standard monitoring Results Review: All pre-operative results and documents have been reviewed as part of the pre-operative evaluation. Informed Consent: The patient's anesthetic plan and its attendant risks and benefits were discussed with the patient/family/POA. Questions were solicited and answers provided to the satisfaction of the patient/family/POA.
[2024-07-15] MEDS: KETOROLAC 15 MG/ML VIAL (*BKC) IV PUSH (14:01)
[2024-07-15 14:17] VITALS: BP 87/50; PULSE 71; RESP 14; O2SAT 100
--- NOTE | 2024-07-15 14:18 | W.PM.PROC2 ---
Procedure Note - Detailed Date of Procedure 07/15/24 Pre-op Diagnosis menorrhagia Post-op Diagnosis Same Procedure Performed D&C hysteroscopy Surgeon Stacey Wolf MD Anesthesia MAC Findings Uterus sounds to 9cm and appears grossly normal Description of Procedure The patient was taken to the operating room under anesthesia in the dorsal lithotomy position. She was prepped and draped in the usual sterile fashion. [place] speculum was placed in the vagina and the cervix was grasped anterior lip with a tenaculum. The uterus is sounded to 9cm. Diagnostic hysteroscope was placed and the endometrium appears grossly normal. The hysteroscope was removed. The sharp curette is used to curette the endometrium until a good uterine cry noted in all areas. All instruments are removed. Sponge, needle, and instrument counts were correct per the OR staff. Patient was awakened from anesthesia and taken to recovery in stable condition. Estimated Blood Loss 5 Drains No Packing No Pathology Yes (Endometrial curettings) Complications No immediate complications Condition Stable Disposition PACU
[2024-07-15 14:45] VITALS: BP 90/50; PULSE 57; RESP 20
[2024-07-15 15:15] VITALS: BP 102/68; PULSE 68; RESP 20
== END 2024-07-15 15:18 | disposition home or self-care (01) ==
PROVIDERS: PCP Family Medicine; Visit Provider Obstetrics & Gynecology Gynecology
PROC: 0U5B8ZZ Destruction of Endometrium, Via Natural or Artificial Opening Endoscopic (ICD-10-PCS; CPT 58563; principal; 2024-07-15 14:30)
DX: N92.0 Excessive and frequent menstruation with regular cycle (principal); F17.210 Nicotine dependence, cigarettes, uncomplicated
CPT/HCPCS: 58558; 88305; A9270; J1885; J2003; J2250; J2405; J2704; J3010; J7120

== ENCOUNTER 2024-08-26 01:25 | Day surgery (SDC) | payer OTHER, SELFPAY ==
[2024-08-20 09:35] VITALS: BMI 26.5
--- NOTE | 2024-08-20 09:42 | PC.NURSE ---
Report to the Outpatient Waiting Room, entrance under the green pavilion located off [facility], at time __1000am on date __08/26/24 . Planned Procedure Time: ___1200pm .? Time changes happen often and if your time is changed the preop area will call you the afternoon before. - You and your visitor will be asked to self-screen and do not enter if you have any COVID symptoms. Please call surgeon if you need to reschedule. - A mask is optional within the hospital at this time. Patients may have clear liquids (water, carbonated beverages, clear teas, apple juice) until 3 hours prior to surgery with a maximum of 20 ounces. - No food from midnight until time of surgery and no smoking, or chewing tobacco (or any form of nicotine). No chewing gum, candy or mints. (0900am) Take only the following medications with a SIP of water on the morning of surgery: ___Sertraline DO NOT STOP ANY OF YOUR OTHER PRESCRIPTION MEDICATIONS PRIOR TO SURGERY EXCEPT THE FOLLOWING Hold all vitamins and supplements for 3 days per anesthesiologist. Medications to discontinue per physician ____None Date to take last dose None Please no make-up, nail citizen of [place], hairspray, perfume, deodorant, or body powder the day of surgery.? No jewelry (including any body piercings) or valuables the day of surgery, leave them at home.? Please take a shower or bath the night before, or the morning of, surgery with an antibacterial soap.? Wear comfortable, loose fitting clothing.? - Jewelry must be removed prior to entering the operating room.? Rings and piercings that are not removed may be cut off. - The hospital will not accept responsibility for valuables.? - Please leave all valuables, including medications, at home the day of surgery. If you are going home after surgery, a licensed rickshaw driver must drive you home.? - NO public transportation without another adult if you receive anesthesia. - We recommend that an adult stay with you for 24 hours following discharge. - We also recommend that you do not drive, make important decision, drink alcoholic beverages, or take any drugs that were not prescribed by your health care provider for at least 24 hours after your discharge time. Follow any additional instructions given to you from your surgeon. Telephone instructions given to _Patient and asked if any additional questions and then verbalized understanding. Patient advised to call surgeon office or pre surgery nurse liaison [phone] if any additional questions.
--- OUTSIDE RECORDS SUMMARY | 2024-08-26 01:28 | XMS_ITS | Clinical Summary ---
[facility] [place] [address] [place] [address] Care Team Providers Care Biomass Plant Manager Name Role Phone Unavailable Primary Care Provider Unavailabl e Allergies No known active allergies Medications No known medications Active Problems No known active problems Encounters Date Type Department Care Team Description 08/20/2024 External Device Data [facility] ABSTRACTION Provider, Abstract 08/08/2024 External Device Data [facility] Provider, Abstract 08/07/2024 External Device Data [facility] Provider, Abstract 08/07/2024 External Device Data [facility] Provider, Abstract 07/02/2024 External Device Data [facility]STRACTION Provider, [...] 3:45 PM CDT Height 162.6 cm (5' 4) 10/07/2023 3:45 PM CDT Body Mass Index [...] patient's age to complete this topic Insurance [facility]
--- OUTSIDE RECORDS SUMMARY | 2024-08-26 01:29 | XMS_ITS | Patient Health Record ---
Author Organization [facility] [place] ([address]) Address [address] [place] [address] Care Team Providers Care Electrolysis Operator Name Role Phone JohnPriyanka Unavailable [phone] Reason For Referral No Information Plan Of Treatment No Information Insurance Providers Payer Name Payer Address Payer Phone Subscriber Number Group Number Insured Name Patient Relationship to Insured Coverage Start Date Coverage End Date [facility] [address] [place] [address] [id number] Abdiel Alexis Spouse - patient is the spouse of the insured
--- OUTSIDE RECORDS SUMMARY | 2024-08-26 01:29 | XMS_ITS | Continuity of Care Document ---
Author Name [facility] Organization [facility] Care Team Providers Care Bakery Decorator Name Role Phone [facility] Unavailable Unavailable Problems Combined list of problems from Department of Defense and Veterans Affairs facilities. It does not include entries that were removed or entered in error. Problem Status Onset Date Problem Type Date of Resolution Comments Source NICOTINE DEPENDENCE - IN REMISSION Active Condition [facility] NICOTINE DEPENDENCE Active Condition [facility] Diagnosis: ICD-10-CM Z63.6 Dependent relative needing care at home Active Diagnosis [facility] Medications Combined list of outpatient medications from Department of Defense and [facility] facilities.Medications provided include 1) outpatient medications from the last 15 months, and 2) patient-reported medications. Medication Details Route Status Patient Instructions Prescription Expires Prescription Number Last Dispense Date Ordering Provider Order Date Order Qty Source ESTRADIOL-N ORETHINDRON E ACETAT (estradiol/ norethindro ne acetate), 0.5-0.1 MG, TABLET, ORAL, INGENUS PHARMAC, 28 ea. BLIST PACK Cancele d [id number] : 2023 0 Pharmac y Data Transac tion Service Facilit y HYDROXYZINE HCL (hydroxyzin e HCl), 25 MG, TABLET, ORAL, RISING PHARM, 500 ea. BOTTLE Active [id number] 4 2023 60 Pharmac y Data Transac tion Service Facilit y OXYBUTYNIN CHLORIDE (oxybutynin chloride), 5 MG, TABLET, ORAL, NOVITIUM/AN I PH, 1000 ea. BOTTLE Active [id number] 4 2023 90 Pharmac y Data Transac tion Service Facilit y TRAZODONE HCL (trazodone HCl), 50 MG, TABLET, ORAL, AUROBINDO PHARM, 100 ea. BOTTLE Active [id number] 4 2023 30 Pharmac y Data Transac tion Service Facilit y TRIAMCINOLO NE ACETONIDE (triamcinol one acetonide), 0.1 %, LOTION, TOPICAL, MICRO LimeTray,, 60 ml BOTTLE Active [id number] 4 2023 60 Pharmac y Data Transac tion Service Facilit y Allergies, Adverse Reactions, Alerts Combined list of allergies from Department of Defense and Veterans Affairs facilities. It does not include entries that were removed or entered in error. Substance Category Reaction Severity Reaction type Status Date Reported Comments Source No Known Allergies Drug allergy (disorder) active 04/20/2011 [facility] Encounters Combined list of: 1) Encounters from Department of Veterans Affairs facilities going backup to the last 18 months, not all [place] inpatient encounters are included; 2) Encounters from the Department of [facility] facilities going backup to 280 months. Location Location Details Encounter Type Encounter Number Reason For Visit Attending Provider ADM Date DC Date Status Disposition Source [facility]) OUTPATIENT [id number] LADARI[facility] PRO 04/22 Released w/o Limitations [facility]) OUTPATIENT [id number] Smoking Cessati on Class CARO SEPULVEDA F 04/29 Released w/o Limitations [facility]) [facility]) OUTPATIENT [id number] smoking cessati on LADARI[facility] PRO A 05/11 Released w/o Limitations [facility](F light Medicin e Group Practic e) [facility] ASSMT/REAS SESSMENT [id number] Diagnos is: ICD-10- CM Z63.6 Depende nt relativ e needing care at home LAURA SINGH 04/14 [facility] Outpatient Encounter [id number] 04/19 [facility] ASSMT/REAS SESSMENT [id number] Diagnos is: ICD-10- CM Z63.6 Depende nt relativ e needing care at home BRANNON DOMINGUEZ 08/14 [facility] N [id number] th [facility] alessandra Between Visit [id number] 11/22 0055A-3 [facility] [facility] [id number] 164 11/22 Ambulat ory Pharmac y [facility] Outpatient Encounter [id number] 9 11/29 [facility] N [facility] HC PRO PHONE CALL 5-10 MIN [id number] Diagnos is: ICD-10- CM Z63.6 Depende nt relativ e needing care at home BRANNON DOMINGUEZ L 12/05 [facility] HC PRO PHONE CALL 11-20 MIN [id number] Diagnos is: ICD-10- CM Z63.6 Depende nt relativ e needing care at home BRANNON DOMINGUEZ A L 03/08 [facility] CASE MANAGEMENT [id number] Diagnos is: ICD-10- CM Z63.6 Depende nt relativ e needing care at home BRANNON DOMINGUEZ A L 08/02 [facility] N Procedures Combined list of: 1) Procedures from Department of Veterans Affairs facilities going back up to thelast 18 months, not all VA non-surgical procedures are included; 2) All procedures from the Department of [facility] facilities. Procedure Procedure Type Code Date Perfomer Comments Sourc e No data available for this section Ambulatory Pharmacy Health And Behav Intervention, Each 15 Min Grp (2 Or More) Health And Behav Intervention, Each 15 Min Grp (2 Or More) [id number] 04/29/2011 CARO SEPULVEDA [facility] HEALTH AND BEHAVIOR INTERVENTION, EACH 15 MINUTES, [id number]; GROUP (2 OR MORE PATIENTS) 04/29/2011 [facility] Social History Combined list of available smoking, [...] Plan No data available for this section 08/26/2024 Ambulatory Pharmacy Functional Status Combined list of recent functional and cognitive assessments recorded at Department of Defense and Veterans Affairs (VA).VA Functional [place] Measurement (FIM) Scale: 1 = Total Assistance (Subject = 0% +), 2 = Maximal Assistance (Subject = 25% +), 3 = Moderate Assistance (Subject = 50% +), 4 = Minimal Assistance (Subject = 75% +), 5 = Supervision, 6 = Modified [place] (Device), 7 = Complete [place] (Timely, Safely). Assessment Date/Time Source Assessment Type Assessment Skill Assessment Score Assessment Details No data available for this section
--- OUTSIDE RECORDS SUMMARY | 2024-08-26 01:29 | XMS_ITS ---
Author Organization [facility] [place] ([address]) Address [address] [place] [address] Care Team Providers Care Stitching Department Supervisor Name Role Phone Priyanka Lopez Unavailable [phone] REASON FOR VISIT WORT EXTRACTOR Allergies Encounters Encounter Location Date Provider Diagnosis [facility] [address] [place] [address] 11/15/2023 Priyanka Lopez Plan Of Treatment No Information Progress Notes * Olayinka GUEVARAOB:[birth year] (48 yo F)Acc No.[id number]:11/15/2023 Progress Notes Patient: Marianne LINK Provider: Leigh Ann Lopez MD :1975 A ge:47 Y S ex:Female Date:11/15/2023 Address:[address] [place], [place] [id number] Subjective: * Chief Complaints: * 1 . 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 * Medical History: Objective: * Vitals: Assessment: Plan: * Treatment: * Billing Information: * Visit Code: * Procedure Codes: * Electronic signature of Merry Lopez MD on 08/26/2024 at 01:28 AM CDT Sign off status: Pending * Provider: Leigh Ann Lopez MD Date: 11/15/2023 Generated for Perla leos/Hitesh/eTransmitting on: 0 08/26/2024 01:28 AM CDT
--- NOTE | 2024-08-26 08:27 | P.HP_ITS ---
History of Present Illness History of Present Illness Consent: Risks, benefits, and alternatives have been discussed and questions answered. Patient agrees to proceed with procedure. Chief complaint: menorrhgia Narrative: Marianne Alexis is a 48 year old female with menorrhagia. Patient underwent D&C hysteroscopy with benign findings. Options were discussed in the office for treatment and the patient elects to proceed with Sabrina endometrial ablation. Risks of infection, bleeding, perforation, device failure, and the success rate of the procedure are reviewed in detail. The patient voices understanding and agrees to proceed. Review of Systems Review of Systems: not repeated day of surgery; patient states no changes in status [facility] Past Medical History Medical History (Updated 07/15/24 @ 08:34 by Stacey Wolf MD) (normal spontaneous vaginal delivery) X2 Anxiety History of frequent headaches Overweight (BMI 25.0-29.9) BMI 26.3 Urolithiasis Nephrolithiasis Surgical History Surgical History (Updated 08/26/24 @ 08:29 by Stacey Wolf MD) History of hysteroscopy with D&C June 2024 History of breast biopsy 2008 benign, 2022 benign Hx of breast augmentation H/O nephrolithotomy with removal of calculi Family History Family History Grandparent Breast cancer Social History Social History Social History: Smoking packs per day: 0.75 Smoking cigarettes per day: 15.0 Years smoked: 30 Smoking pack-years: 22.50 Smoking status: Current every day smoker Tobacco type: cigarettes Second hand tobacco smoke exposure: Yes Alcohol intake: current Alcohol use details: 2 every other weekend Substance use: current Substance use type: marijuana Other substance usage details: Gummies every few months Do You Feel Safe in your Home?: Yes Lack of Transportation: No Lack of Food: Never True Current Housing: I Have Housing Concerned About Future Housing: No Difficulty Paying Gas/Electric Bills: No Difficulty Paying for Meds: No Currently Unemployed: No Education: Don't Know Difficulty w/ Childcare or Family Care: No Living arrangements: with family Additional living arrangements comments: Occupation/Education: occupation 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[employer] [place] Gender identity (if verbalized by the patient): Female Sexual Orientation (if Verbalized by the Patient): Straight or Heterosexual Spiritual care concerns: No Meds Home Medications and Allergies Home Medications ?Medication ?Instructions ?Recorded ?Confirmed ?Type amitriptyline 25 mg tablet 25 mg PO QHS 12/05/23 08/20/24 History lansoprazole 30 mg capsule,delayed 30 mg PO DAILY #30 caps 12/21/23 08/20/24 Rx release sertraline 100 mg tablet See Rx Instructions .Route 04/23/24 08/20/24 Rx .COMPLEX #90 tabs Allergies Allergy/AdvReac Type Severity Reaction Status Date / Time cat dander Allergy Swelling Verified 08/20/24 09:34 dog dander Allergy Swelling Verified 08/20/24 09:34 grass pollen Allergy Swelling Verified 08/20/24 09:34 mold Allergy Swelling Verified 08/20/24 09:34 tree and shrub pollen Allergy Swelling Verified 08/20/24 09:34 Exam Const: General: healthy appearing and alert Orientation/consciousness: patient oriented x3 Resp: Effort & Inspection: normal respiratory effort : External Female Exam: normal external appearance Speculum Exam - Vagina: normal appearance of the vagina and normal vaginal discharge Speculum Exam - Cervix: normal appearance of the cervix Bimanual exam- vagina & uterus: uterine size normal and consistency normal Bimanual Exam- Adnexa, other: normal adnexae and No adnexal tenderness Neuro: General: patient oriented x3 Assessment and Plan Assessment and plan (1) Menorrhagia: Code(s): N92.0 - Excessive and frequent menstruation with regular cycle Status: Acute Assessment and Plan: Plan to proceed with Sabrina endometrial ablation
--- NOTE | 2024-08-26 08:27 | WPDHPUPDATE1 ---
History and Physical Update Update Date/Time: 08/26/24 08:27 History and Physical has been reviewed, including an updated exam of the patient. There are NO changes in the patient's condition. Risks, benefits, and alternatives have been discussed and questions answered. Patient agrees to proceed with procedure.
[2024-08-26 10:00] VITALS: BP 117/80; PULSE 86; RESP 14; TEMP 37.2; O2SAT 100
[2024-08-26] MEDS: ACETAMINOPHEN 500 MG TABLET 1000 MG PO (10:00)
[2024-08-26] MEDS: LACTATED RINGERS 1,000 ML 30 ML IV CONT (10:00)
--- NOTE | 2024-08-26 10:10 | WPDANESEPPF ---
Anes - Initial Pre Proc Eval Procedure: Operation Date: 08/26/24 12:00 Proposed Procedures p Hysteroscopy with Sabrina Endometrial Ablation - Stacey Wolf MD Date/Time: 08/26/24 10:10 Surgeon: Stacey Wolf MD Pre Op Diagnosis: menorrhgia Patient Data Age: 48 Gender: F Height: 1.6 m Weight: 68 kg Allergies Allergy/AdvReac Type Severity Reaction Status Date / Time cat dander Allergy Swelling Verified 08/20/24 09:34 dog dander Allergy Swelling Verified 08/20/24 09:34 grass pollen Allergy Swelling Verified 08/20/24 09:34 mold Allergy Swelling Verified 08/20/24 09:34 tree and shrub pollen Allergy Swelling Verified 08/20/24 09:34 Home Medications ?Medication ?Instructions ?Recorded ?Confirmed ?Type amitriptyline 25 mg tablet 25 mg PO QHS 12/05/23 08/20/24 History lansoprazole 30 mg capsule,delayed 30 mg PO DAILY #30 caps 12/21/23 08/20/24 Rx release sertraline 100 mg tablet See Rx Instructions .Route 04/23/24 08/20/24 Rx .COMPLEX #90 tabs Patient hx anesthesia problems: none Family hx anesthesia problems: none Results Review: All pre-operative results and documents have been reviewed as part of the pre-operative evaluation. [facility] Past Medical History Medical History (normal spontaneous vaginal delivery) X2 Anxiety History of frequent headaches Overweight (BMI 25.0-29.9) BMI 26.3 Urolithiasis Nephrolithiasis Surgical History Surgical History History of hysteroscopy with D&C June 2024 History of breast biopsy 2008 benign, 2022 benign Hx of breast augmentation H/O nephrolithotomy with removal of calculi Family History Family History Grandparent Breast cancer Social History Social History Social History: Smoking packs per day: 0.75 Smoking cigarettes per day: 15.0 Years smoked: 30 Smoking pack-years: 22.50 Smoking status: Current every day smoker Tobacco type: cigarettes Second hand tobacco smoke exposure: Yes Alcohol intake: current Alcohol use details: 2 every other weekend Substance use: current Substance use type: marijuana Other substance usage details: Gummies every few months Do You Feel Safe in your Home?: Yes Lack of Transportation: No Lack of Food: Never True Current Housing: I Have Housing Concerned About Future Housing: No Difficulty Paying Gas/Electric Bills: No Difficulty Paying for Meds: No Currently Unemployed: No Education: Don't Know Difficulty w/ Childcare or Family Care: No Living arrangements: with family Additional living arrangements comments: Occupation/Education: occupation 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 [employer] Gender identity (if verbalized by the patient): Female Sexual Orientation (if Verbalized by the Patient): Straight or Heterosexual Spiritual care concerns: No Anes - Eval Final PreProcedure Day of Procedure 08/26/24 10:10 Patient weight: overweight Heart: regular rate and rhythm Lungs: decreased breath sounds Airway: Mallampati scale class II Neurological: alert and oriented Last oral intake: >/= 8 hours ASA classification: III Emergent: no Anesthetic plan: proceed Anesthesia type and monitoring: general GIVS and standard monitoring Results Review: All pre-operative results and documents have been reviewed as part of the pre-operative evaluation. Informed Consent: The patient's anesthetic plan and its attendant risks and benefits were discussed with the patient/family/POA. Questions were solicited and answers provided to the satisfaction of the patient/family/POA.
[2024-08-26] MEDS: LIDOCAINE 1% LOCAL INJ 10 ML VIAL INFILTRATE (10:23)
[2024-08-26 10:43] VITALS: BP 101/60; PULSE 71; RESP 12; O2SAT 100
--- NOTE | 2024-08-26 10:43 | P.OP_ITS ---
Procedure Note - Detailed Date of Procedure 08/26/24 Pre-op Diagnosis menorrhgia Post-op Diagnosis Same Procedure Performed Sabrina endometrial ablation Surgeon Stacey Wolf MD Anesthesia MAC Findings Uterus sounds to 8.5cm and appears grossly normal. Good ablation affects following the procedure. Description of Procedure The patient was taken to the operating room and placed under anesthesia in the dorsal lithotomy position. She was prepped and draped in the usual sterile fashion. [place] speculum was placed in the vagina and the cervix grasped on the anterior lip with a tenaculum. The cervix was injected in each quadrant with 1% lidocaine. The uterus is sounded to 8.5cm. The diagnostic hysteroscope was placed and no abnormalities are noted. The hysteroscope was removed and the cervix serially dilated to an 8 Hegar. The Sabrina device is opened and placed. Cavity assessment and safety tests passed on the 1st attempt. Treatment cycle lasted full 2minutes. The ablation device was removed and the hysteroscope replaced. Good ablation effect was noted. All instruments are removed. Sponge, needle, and instrument counts are correct per the OR staff. The patient was taken to recovery in stable condition. Estimated Blood Loss 5 Drains No Packing No Pathology None sent Complications No immediate complications Disposition PACU
[2024-08-26 10:46] LABS: BEDSIDEPREGUCG Negative (Negative)
[2024-08-26 11:15] VITALS: BP 110/74; PULSE 63; RESP 12; O2SAT 98
[2024-08-26] MEDS: oxyCODONE HCL (*CRX) 5 MG TAB IR PO (11:44)
[2024-08-26 11:45] VITALS: BP 129/84; PULSE 70; RESP 14
[2024-08-26 12:05] VITALS: BP 122/88; PULSE 70; RESP 14
== END 2024-08-26 12:10 | disposition home or self-care (01) ==
PROVIDERS: PCP Family Medicine; Visit Provider Obstetrics & Gynecology Gynecology
PROC: 0U5B8ZZ Destruction of Endometrium, Via Natural or Artificial Opening Endoscopic (ICD-10-PCS; CPT 58563; principal; 2024-08-26 12:00)
DX: N92.0 Excessive and frequent menstruation with regular cycle (principal); F17.210 Nicotine dependence, cigarettes, uncomplicated; F12.90 Cannabis use, unspecified, uncomplicated
CPT/HCPCS: 58563; A9270; J2003; J2250; J2405; J2704; J7120

== ENCOUNTER 2024-12-26 12:40 | Outpatient (CLI) | payer OTHER, SELFPAY ==
--- NOTE | ~2024-12-26 | MM_ITS ---
EXAMINATION: MM scrn rocky implant BI w magda INDICATION: Asymptomatic, referred for screening mammogram COMPARISON: 08/07/2023 through 05/18/2018 TECHNIQUE: Digital Breast Tomosynthesis CC, MLO, and implant displaced CC and MLO views of Both breasts were obtained with computer-aided detection to assist in interpretation of the study. FINDINGS: The breasts are heterogeneously dense, which may obscure small masses. Bilateral breast Retroglandular Silicone implants in place appears intact. No focal dominant mass, architectural distortion, or suspicious microcalcifications are identified. There are no features to suggest malignancy. IMPRESSION: 1. No evidence of malignancy in the breasts. 2. Both breasts Retroglandular Silicone implants appears intact. Recommend continued screening mammography BI-RADS 1, NEGATIVE Reviewed, dictated and finalized at location B.
== END 2024-12-26 12:41 | disposition home or self-care (01) ==
LOC: CHSIMG 12:41
PROVIDERS: PCP Family Medicine; Visit Provider Obstetrics & Gynecology Gynecology
DX: Z12.31 Encounter for screening mammogram for malignant neoplasm of breast (principal)
CPT/HCPCS: 77063; 77067